=== PATIENT | female | born 1940 | race Caucasian/White ===

== ENCOUNTER → 2016-08-13 08:36 | Emergency (ER) | payer MEDICARE ==
[~2016-08-13 08:36] MED LIST: Aspirin Low Dose CHEW TAB* 81 MG PO ONE
[2016-08-13 09:22] LABS: Hematocrit 33 % (35-47); Hemoglobin 10.8 g/dl (12.0-16.0); Mean Corpuscular HGB Conc 33 g/dl (31-36); Mean Corpuscular Hemoglobin 29 pg (27-31); Mean Corpuscular Volume 88 fL (80-97); Mean Platelet Volume 7 um3 (7.4-10.4); Red Blood Count 3.74 10^6/ul (4.0-5.4); Red Cell Distribution Width 14 % (10.5-15)
[2016-08-13 09:46] LABS: Albumin 3.6 g/dL (3.2-5.2); BUN/Creatinine Ratio 30.4 (8-20); Calcium 8.7 mg/dL (8.6-10.3); EGFR Non-African American 70.8 (>60); Globulin 2.8 g/dL (2-4); Potassium 3.7 mmol/L (3.5-5.0); Total Bilirubin 0.4 mg/dL (0.2-1.0); Total Protein 6.4 g/dL (6.4-8.9)
[2016-08-13 09:49] LABS: Troponin I 0.02 ng/mL (<0.04)
--- NOTE | 2016-08-13 11:21 | RAD ---
INDICATION: Chest pain COMPARISON: Similar chest x-ray dated December 26, 2015 TECHNIQUE: Single AP portable view of the chest was obtained. FINDINGS: Image quality is compromised due to the relative inferiority of a portable chest x-ray. The heart and mediastinum exhibit normal size and contour. The lungs are grossly clear. There is no evidence of a large pleural effusion. Visualized bones are normal for the patient's age. IMPRESSION: No radiographic evidence for acute cardiopulmonary abnormality on this portable chest x-ray.
[2016-08-13 13:18] VITALS: BP 153/78
--- NOTE | 2016-08-14 17:27 | ED ---
Gaby Palafox Edward, scribed for Tulio Lanier MD on 08/13/16 at 0854 . HPI Chest Pain - HPI Summary HPI Summary: 76 y/o female presents to ED c/o CP on her left side. CP started while pt was sitting - characterized as a dull/aching pain, that lasted half an hour. Pain was not aggravated with movement or breathing. Alleviated by spontaneous resolution. No CP currently. Assoc sx: bad COBOS after the CP went away, but not present now. Denies N/V, diaphoresis, SOB, dizziness and fever. PMHx 2 LA in past 10 years, HTN. Takes Plavix and NTG. - History of Current Complaint Chief Complaint: EDChestPainROMI Time Seen by Provider: 08/13/16 08:48 Hx Obtained From: Patient Onset/Duration: Started Hours Ago Timing: Lasting Minutes - Lasted about half an hour Initial Severity: Moderate Current Severity: None Pain Intensity: 0 Chest Pain Location: Left Lateral Chest Pain Radiates: No Character: Dull/Aching Aggravating Factor(s): Nothing - Not aggravated by movement or breathing Alleviating Factor(s): Spontaneous Resolution Associated Signs and Symptoms: Positive: Chest Pain - dull/aching, Headaches - Started after CP went away. Not present currenlty. Negative: Dizziness, Shortness of Breath, Fever, Diaphoresis, Nausea - Risk Factors AMI/ACS Risk Factors: Myocardial Infarction - 2 in past 10 years, Hypertension, Smoking - Quit smoking at 75 y/o - Additional Pertinent History Primary Care Physician: ROSEMARY - Allergy/Home Medications Allergies/Adverse Reactions: Allergies Allergy/AdvReac Type Severity Reaction Status Date / Time LOYD Inhibitors Allergy Coughing Verified 08/13/16 08:40 [facility] Allergy Rash Verified 08/13/16 08:40 PMH/Surg Hx/FS Hx/Imm Hx Previously Healthy: No Endocrine/Hematology History: Reports: Hx Diabetes Denies: Hx Bone Marrow Disease, Hx Sickle Cell Disease, Hx Anemia Cardiovascular History: Reports: Hx Angina, Hx Coronary Artery Disease, Hx Hypercholesterolemia, Hx Hypertension, Hx Myocardial Infarction - 2 in 10 years , Other Cardiovascular Problems/Disorders - IDDM Denies: Hx Congestive Heart Failure, Hx Valvular Heart Disease Respiratory History: Denies: Hx Asthma, Hx Chronic Obstructive Pulmonary Disease (COPD) GI History: Reports: Hx Gall Bladder Disease - removed, Hx Gastroesophageal Reflux Disease Denies: Hx Ulcer History: Denies: Hx Renal Disease Musculoskeletal History: Reports: Hx Arthritis - knees, hands, Hx Osteoporosis Sensory History: Reports: Hx Contacts or Glasses Denies: Hx Hearing Aid Opthamlomology History: Reports: Hx Contacts or Glasses Neurological History: Reports: Hx Headaches, Hx Migraine - Cancer History Hx Chemotherapy: No - Surgical History Surgery Procedure, Year, and Place: left knee total replacement 2012 [facility],. cholecystectomy 5-6 years ago in [facility] [place]. 2014 - left ankle orif. HEART CATH WITH 2 STENTS Hx Anesthesia Reactions: No Infectious Disease History: No Infectious Disease History: Denies: Traveled Outside the [place] in Last 30 Days - Family History Known Family History: Positive: Cardiac Disease - CAD (both parents) - Social History Occupation: Retired Lives: Alone Alcohol Use: None Substance Use Type: Reports: None Hx Tobacco Use: Yes Smoking Status (MU): Former Smoker Type: Cigarettes Have You Smoked in the Last Year: No Review of Systems Constitutional: Negative Negative: Fever, Skin Diaphoresis Eyes: Negative ENT: Negative Positive: Chest Pain - dull/aching. Not present now Respiratory: Negative Negative: Shortness Of Breath Gastrointestinal: Negative Negative: Vomiting, Nausea Genitourinary: Negative Musculoskeletal: Negative Skin: Negative Neurological: Other - Negative dizziness Positive: Headache - Resolved Psychological: Normal All Other Systems Reviewed And Are Negative: Yes Physical Exam - Summary Physical Exam Summary: VITAL SIGNS:~Reviewed. GENERAL:~ Patient is a well-developed and nourished female who is lying comfortable in the stretcher.~ Patient is not in any acute respiratory distress. HEAD AND FACE:~No signs of trauma.~ No ecchymosis, hematomas or skull depressions. No sinus tenderness. EYES:~PERRLA, EOMI x 2, No injected conjunctiva, no nystagmus. EARS:~Hearing grossly intact. Ear canals and tympanic membranes are within normal limits. MOUTH:~Oropharynx within normal limits. NECK:~Supple, trachea is midline, no adenopathy, no JVD, no carotid bruit, no c- spine tenderness, neck with full ROM. CHEST:~Symmetric, no tenderness at palpation LUNGS:~Clear to auscultation bilaterally. No wheezing or crackles. CVS:~Regular rate and rhythm, S1 and S2 present, no murmurs or gallops appreciated. ABDOMEN:~Soft, non-tender. No signs of distention. No rebound no guarding, and no masses palpated. Bowel sounds are normal. EXTREMITIES:~FROM in all major joints, no edema, no cyanosis or clubbing. NEURO:~Alert and oriented x 3. No acute neurological deficits. Speech is normal and follows commands. SKIN:~Dry and warm ~ Triage Information Reviewed: Yes Vital Signs On Initial Exam: Initial Vitals Temp Pulse Resp BP Pulse Ox 98 F 69 16 132/70 97 08/13/16 08:43 08/13/16 08:43 08/13/16 08:43 08/13/16 08:43 08/13/16 08:43 Vital Signs Reviewed: Yes - Corn Coma Scale Coma Scale Total: 15 Diagnostics - Vital Signs Vital Signs Temp Pulse Resp BP Pulse Ox 08/13/16 08:43 98 F 69 16 132/70 97 - Laboratory Lab Results: Lab Results 08/13/16 08/13/16 08/13/16 Range/Units 09:05 09:05 09:05 WBC 6.0 (3.5-10.8) 10^3/ul RBC 3.74 L (4.0-5.4) 10^6/ul Hgb 10.8 L (12.0-16.0) g/dl Hct 33 L (35-47) % MCV 88 (80-97) fL MCH 29 (27-31) pg MCHC 33 (31-36) g/dl RDW 14 (10.5-15) % Plt Count 240 (150-450) 10^3/ul MPV 7 L (7.4-10.4) um3 Neut % (Auto) 65.6 (38-83) % Lymph % (Auto) 19.9 L (25-47) % [place] % (Auto) 8.7 (1-9) % Eos % (Auto) 4.4 (0-6) % Baso % (Auto) 1.4 (0-2) % Absolute Neuts (auto) 3.9 (1.5-7.7) 10^3/ul Absolute Lymphs (auto) 1.2 (1.0-4.8) 10^3/ul Absolute Monos (auto) 0.5 (0-0.8) 10^3/ul Absolute Eos (auto) 0.3 (0-0.6) 10^3/ul Absolute Basos (auto) 0.1 (0-0.2) 10^3/ul Absolute Nucleated RBC 0 10^3/ul Nucleated RBC % 0.1 Sodium 137 (133-145) mmol/L Potassium 3.7 (3.5-5.0) mmol/L Chloride 105 (101-111) mmol/L Carbon Dioxide 27 (22-32) mmol/L Anion Gap 5 (2-11) mmol/L BUN 24 (6-24) mg/dL Creatinine 0.79 (0.51-0.95) mg/dL Est GFR ( Amer) 91.0 (>60) Est GFR (Non-Af Amer) 70.8 (>60) BUN/Creatinine Ratio 30.4 H (8-20) Glucose 136 H (70-100) mg/dL Lactic Acid 1.4 (0.5-2.0) mmol/L Calcium 8.7 (8.6-10.3) mg/dL Total Bilirubin 0.40 (0.2-1.0) mg/dL AST 22 (13-39) U/L ALT 23 (7-52) U/L Alkaline Phosphatase 101 (34-104) U/L Total Creatine Kinase 36 (10-223) U/L CK-MB (CK-2) 1.1 (0.6-6.3) ng/mL Troponin I 0.02 (<0.04) ng/mL B-Natriuretic Peptide ( - 100) pg/mL Total Protein 6.4 (6.4-8.9) g/dL Albumin 3.6 (3.2-5.2) g/dL Globulin 2.8 (2-4) g/dL Albumin/Globulin Ratio 1.3 (1-3) 08/13/16 08/13/16 Range/Units 09:05 11:35 WBC (3.5-10.8) 10^3/ul RBC (4.0-5.4) 10^6/ul Hgb (12.0-16.0) g/dl Hct (35-47) % MCV (80-97) fL MCH (27-31) pg MCHC (31-36) g/dl RDW (10.5-15) % Plt Count (150-450) 10^3/ul MPV (7.4-10.4) um3 Neut % (Auto) (38-83) % Lymph % (Auto) (25-47) % [place] % (Auto) (1-9) % Eos % (Auto) (0-6) % Baso % (Auto) (0-2) % Absolute Neuts (auto) (1.5-7.7) 10^3/ul Absolute Lymphs (auto) (1.0-4.8) 10^3/ul Absolute Monos (auto) (0-0.8) 10^3/ul Absolute Eos (auto) (0-0.6) 10^3/ul Absolute Basos (auto) (0-0.2) 10^3/ul Absolute Nucleated RBC 10^3/ul Nucleated RBC % Sodium (133-145) mmol/L Potassium (3.5-5.0) mmol/L Chloride (101-111) mmol/L Carbon Dioxide (22-32) mmol/L Anion Gap (2-11) mmol/L BUN (6-24) mg/dL Creatinine (0.51-0.95) mg/dL Est GFR ( Amer) (>60) Est GFR (Non-Af Amer) (>60) BUN/Creatinine Ratio (8-20) Glucose (70-100) mg/dL Lactic Acid (0.5-2.0) mmol/L Calcium (8.6-10.3) mg/dL Total Bilirubin (0.2-1.0) mg/dL AST (13-39) U/L ALT (7-52) U/L Alkaline Phosphatase (34-104) U/L Total Creatine Kinase (10-223) U/L CK-MB (CK-2) (0.6-6.3) ng/mL Troponin I 0.02 (<0.04) ng/mL B-Natriuretic Peptide 73 ( - 100) pg/mL Total Protein (6.4-8.9) g/dL Albumin (3.2-5.2) g/dL Globulin (2-4) g/dL Albumin/Globulin Ratio (1-3) Result Diagrams: 08/13/16 09:05 08/13/16 09:05 Lab Statement: Any lab studies that have been ordered have been reviewed, and results considered in the medical decision making process. - Radiology CHEST XRAY Xray Interpretation: No Acute Changes - No radiographic evidence for acute cardiopulmonary abnormality on this portable chest x-ray. Radiology Interpretation Completed By: Radiologist - EKG 1 EKG Interpretation: 08:51 - Sinus rhythm @ [address] elevations Chest Pain Course/Dx - Course Assessment/Plan: 76 y/o female presents to ED c/o CP on her left side. CP started while pt was sitting - characterized as a dull/aching pain, that lasted half an hour. Pain was not aggravated with movement or breathing. Alleviated by spontaneous resolution. No CP currently. Assoc sx: bad COBOS after the CP went away , but not present now. Denies N/V, diaphoresis, SOB, dizziness and fever. PMHx 2 LA in past 10 years, HTN. Takes Plavix and NTG. In the ED course, we acquired IV access and the patient was placed on a monitor. The patient experienced no CP at this point and no symptoms. Patients CP lasted half an hour. She has NTG but didnt take her medications. Tests are WNL except glucose 136, Trop 1 negative and Trop 2 0.02. EKG showed no ST elevation. Patients CXR was negative for acute pathology. I discussed with the patient who was instructed to F/U with her PCP, and instructed to return if she experiences CP, SOB, Palpitations, N/V, and diaphoresis. The Patient understands and agrees. - Chest Pain Differential Diagnosis/HQI/PQRI: ACS, Angina, CHF, Chest Wall, GI Disease, Lower Respiratory Infection - Diagnoses Provider Diagnoses: Chest pain Discharge - Discharge Plan Condition: Stable Disposition: HOME Patient Education Materials: Chest Pain (ED) Referrals: Camila Dean MD [Primary Care Provider] - The documentation as recorded by the Gaby diaz Edward accurately reflects the service I personally performed and the decisions made by me, Tulio Lanier MD.
== END | disposition home or self-care (01) ==
LOC: ED 08:36
DX: R07.9 Chest pain, unspecified (principal); R51 Headache; Z87.891 Personal history of nicotine dependence
CPT/HCPCS: 36415; 71010; 80053; 82550; 82553; 83605; 83880; 84484; 85025; 93005; 99283; A9270-GY

== ENCOUNTER 2016-09-22 20:27 | Inpatient (IN) | payer MEDICARE, BC ==
[2016-09-22] MEDS ORDERED: Aspirin Low Dose CHEW TAB* 81 MG PO ONE (21:16)
[2016-09-22 21:26] LABS: Hematocrit 33 % (35-47); Hemoglobin 10.8 g/dl (12.0-16.0); Mean Corpuscular HGB Conc 33 g/dl (31-36); Mean Corpuscular Hemoglobin 30 pg (27-31); Mean Corpuscular Volume 92 fL (80-97); Mean Platelet Volume 7 um3 (7.4-10.4); Red Blood Count 3.61 10^6/ul (4.0-5.4); Red Cell Distribution Width 14 % (10.5-15); White Blood Count 8.2 10^3/ul (3.5-10.8)
[2016-09-22 21:43] LABS: Albumin 3.7 g/dL (3.2-5.2); BUN/Creatinine Ratio 32.9 (8-20); Calcium 8.9 mg/dL (8.6-10.3); EGFR African American 87.2 (>60); EGFR Non-African American 67.8 (>60); Globulin 3.1 g/dL (2-4); Total Bilirubin 0.6 mg/dL (0.2-1.0); Total Protein 6.8 g/dL (6.4-8.9)
[2016-09-22 21:48] LABS: Troponin I 0.06 ng/mL (<0.04)
--- NOTE | 2016-09-22 22:02 | RAD ---
Indication: Chest pain, shortness of breath. CHF. Coronary artery disease. Diabetes. History of tobacco use. Comparison: August 13, 2016 chest radiograph. Technique: Upright AP 2120 hours Report: Elevated lung volumes and both diffuse mild prominence of the interstitial markings and patchy rarefaction of the mid to upper lung zone interstitial markings. No focal pulmonary lesion, compelling alveolar consolidation, pleural effusion, pneumothorax. The heart, pulmonary vasculature, and mediastinal contours are unremarkable. IMPRESSION: Stigmata of obstructive lung disease. No acute pulmonary or cardiac process evident.
[2016-09-22] MEDS ORDERED: Ondansetron ODT TAB* 4 MG SL PRN (23:22)
[2016-09-22] MEDS ORDERED: Olopatadine 0.1% OPHTH (NF) 1 DROP BTL BOTH EYES PRN (23:22)
[2016-09-22] MEDS ORDERED: Acetaminophen TAB* 325 MG PO PRN (23:22)
[2016-09-22] MEDS ORDERED: Cetirizine* 10 MG TAB PO PRN (23:22)
[2016-09-22] MEDS ORDERED: Dextrose 50% Syringe 50 ML* 25 GM/50 ML SYRINGE IV PUSH PRN (23:25)
[2016-09-23] MEDS: Insulin LISPRO* 1 UNITS UNIT SUBCUT SCH ×5 (01:14→23:52)
--- NOTE | 2016-09-23 01:35 | HP ---
CC: Dr. Dean* HISTORY AND PHYSICAL: DATE OF ADMISSION: 09/22/16 CHIEF COMPLAINT: Chest pressure. HISTORY OF PRESENT ILLNESS: The patient is a 76-year-old who is an unusually poor historian who presents to the [facility] with the chief complaint of chest pressure that apparently started this morning. Initially, when I walked into the room, the patient could not remember why she was here, but with some prodding by the nurse and the ER doctor, she did recall some things. She stated it started 9 am. She had no associated shortness of breath , nausea, vomiting, palpations or sweating. She did recall, however, it is different from her previous MIs, but cannot recall the character of her pain. PAST MEDICAL HISTORY: Significant for coronary artery disease with LA and stents placed, most recently 2 stents placed by Interventional Cardiology at [facility]. One with a stent in the obtuse marginal branch and another in the circumflex artery and the other in proximal lesion of the circumflex artery with another drug eluting stent. Also, she has hypertension, hyperlipidemia, non- insulin dependent diabetes, GERD, migraines, history of left foot drop. PAST SURGICAL HISTORY: Significant for ORIF of the left ankle complicated by infection and hardware removal, cholecystectomy and left total knee replacement. CURRENT MEDICATIONS: 1. Metformin 500 mg twice daily. 2. Zofran 4 mg sublingual q.4 hours as needed. 3. Omeprazole 20 mg daily. 4. Patanol one drop to both eyes twice a day as needed. 5. Benicar 40 mg daily. 6. Multivitamin 1 tablet daily. 7. Metoprolol succinate 100 mg twice daily. 8. Hydrochlorothiazide 25 mg daily. 9. Diltiazem CD 120 mg daily. 10. Zyrtec 10 mg daily as needed. 11. Calcium 1000 mg daily. 12. Lipitor 80 mg in the evening. 13. Aspirin 81 mg daily. 14. Tylenol 650 mg every 6 hours as needed. ALLERGIES: She has allergy/adverse reactions to LOYD INHIBITORS, which is coughing and AMLODIPINE, which is a rash. FAMILY HISTORY: Two parents with coronary artery disease as well as 3 siblings. SOCIAL HISTORY: No tobacco, quit, has a [id number] history, no alcohol, no recreational drug use. She lives alone. She cannot give me the name of surrogate decision maker. REVIEW OF SYSTEMS: Unable to obtain from the patient due to her being a poor historian. PHYSICAL EXAMINATION GENERAL: Obese woman, lying in bed, in no acute distress. VITAL SIGNS: Blood pressure is 104/47, pulse ox 95%, respiratory rate 14 breaths per minute, heart rate 75 beats per minute, temperature 97.8 degrees. HEENT: Normocephalic, atraumatic. Pupils equal, round, and reactive to light. Moist mucous membranes. NECK: Supple. No JVD, bruits, palpable thyroid or lymphadenopathy. CHEST: Clear to auscultation and percussion bilaterally. CARDIOVASCULAR: S1 and S2 appreciated. ABDOMEN: Positive bowel sounds in all 4 quadrants. Soft, nontender, nondistended. EXTREMITIES: No cyanosis or clubbing, bilateral edema. +2 peripheral pulses bilaterally. NEUROLOGIC: Alert and oriented x2. Moves all extremities. SKIN: No distinct rashes or abnormalities. LAB DATA: White count of 8.2, hemoglobin 10.8, hematocrit 33, platelets are 277. Sodium was 137, potassium 4.0, chloride 103, CO2 29, BUN 27, creatinine 0.82, glucose 104, troponin 0.06. EKG not available for review at this time. ASSESSMENT AND PLAN: 1. Chest pain, I doubt it is cardiac only because it is so different from prior events and she cannot give me much of a history about it. I am awaiting the EKG. If the troponin does bump, however, I will not hesitate to put her on heparin and make Cardiology aware. We will check hemoglobin A1c and lipid profile. If her troponin stays in the same stage, I will get a nuclear cardiac stress test in the morning. The patient is obviously being admitted to telemetry. 2. Diabetes mellitus, hold oral hypoglycemics, placed on fingerstick with sliding scale insulin. As noted earlier, hemoglobin A1c. 3. Hypertension, continue current regimen, blood pressure borderline control. 4. Gastroesophageal reflux disease, stable, continue PPI. 5. DVT prophylaxis, heparin subcu. 6. FEN. NPO awaiting either stress test or other intervention if necessary. 7. The patient is a full code. TIME SPENT: Over 80 minutes were spent on this H and P, more than 40 minutes of which was spent in direct [id number] contact with the patient in evaluation , physical exam, and counseling and coordination of care. [id number]/[facility] #: [id number] DEWEY
--- NOTE | 2016-09-23 03:35 | ED ---
Chepe Palafox Rebecca, scribed for Taye Villagomez MD on 09/22/16 at 2103 . HPI Chest Pain - HPI Summary HPI Summary: Pt is a 76 y/o F who presents to ED c/o CP. Pain began at 0900 and has been constant since onset. Sx characterized as pressure and located in the left anterior region with possible radiation to the LLE. Pain is currently resolved, ranked 0/10. Sx aggravated by nothing, alleviated by NTG, unchanged by waking and exertion. Denies SOB, diaphoresis, edema and pain in the calves. Denies N/V/ D, melena, blood in stool, difficulty urinating, cough and rhionrrhea. No recent travel or surgeries. FHx CAD (father). PMHx CAD and NH - current sx are different from previous MIs but she is unsure how it differs. This episode is the first of CP in awhile. Has an appt with her search engine marketing strategist tomorrow through [employer]. - History of Current Complaint Chief Complaint: EDChestPainROMI Time Seen by Provider: 09/22/16 20:49 Hx Obtained From: Patient Onset/Duration: Started Hours Ago, Resolved Time of Onset: 09:00 Timing: Constant Current Severity: None Pain Intensity: 0 Pain Scale Used: 0-10 Numeric Chest Pain Location: Left Anterior Chest Pain Radiates: Yes Chest Pain Radiates To:: Arm - LUE Character: Pressure/Squeezing Aggravating Factor(s): Nothing Alleviating Factor(s): NTG 123 Associated Signs and Symptoms: Positive: Negative. Negative: Shortness of Breath, Diaphoresis, Nausea, Vomiting, Edema - Additional Pertinent History Primary Care Physician: ROSEMARY - Allergy/Home Medications Allergies/Adverse Reactions: Allergies Allergy/AdvReac Type Severity Reaction Status Date / Time LOYD Inhibitors Allergy Coughing Verified 09/22/16 21:52 [facility]ine [From [facility]] Allergy Rash Verified 09/22/16 21:52 PMH/Surg Hx/FS Hx/Imm Hx Endocrine/Hematology History: Reports: Hx Diabetes Denies: Hx Bone Marrow Disease, Hx Sickle Cell Disease, Hx Anemia Cardiovascular History: Reports: Hx Angina, Hx Coronary Artery Disease, Hx Hypercholesterolemia, Hx Hypertension, Hx Myocardial Infarction - 2 in 10 years , Other Cardiovascular Problems/Disorders - IDDM Denies: Hx Congestive Heart Failure, Hx Valvular Heart Disease Respiratory History: Denies: Hx Asthma, Hx Chronic Obstructive Pulmonary Disease (COPD) GI History: Reports: Hx Gall Bladder Disease - removed, Hx Gastroesophageal Reflux Disease Denies: Hx Ulcer History: Denies: Hx Renal Disease Musculoskeletal History: Reports: Hx Arthritis - knees, hands, Hx Osteoporosis Sensory History: Reports: Hx Contacts or Glasses Denies: Hx Hearing Aid Opthamlomology History: Reports: Hx Contacts or Glasses Neurological History: Reports: Hx Headaches, Hx Migraine - Cancer History Hx Chemotherapy: No - Surgical History Surgery Procedure, Year, and Place: left knee total replacement 2012 [facility],. cholecystectomy 5-6 years ago in [facility] [place]. 2014 - left ankle orif. HEART CATH WITH 2 STENTS Hx Anesthesia Reactions: No Infectious Disease History: No Infectious Disease History: Denies: Traveled Outside the [place] in Last 30 Days - Family History Known Family History: Positive: Cardiac Disease - CAD (both parents) - Social History Alcohol Use: None Substance Use Type: Reports: None Hx Tobacco Use: Yes Smoking Status (MU): Former Smoker Type: Cigarettes Have You Smoked in the Last Year: No Review of Systems Negative: Skin Diaphoresis Negative: Nasal Discharge Positive: Chest Pain - Pressure - resolved Negative: Shortness Of Breath, Cough Negative: Vomiting, Diarrhea, Nausea Positive: other - Denies melena, blood in stool, difficulty urinating Positive: Other - Denies calf tenderness. Negative: Edema All Other Systems Reviewed And Are Negative: Yes Physical Exam - Summary Physical Exam Summary: The patient is well-nourished in no acute distress and in no acute pain. The skin is warm and dry and pale. Decreased skin turgor. HEENT: The pupils are equal and reactive. The nares are patent and without drainage. Mouth reveals dry mucous membranes and the throat is without erythema and exudate. The external ears are intact. The ear canals are patent and without drainage. The tympanic membranes are intact. Neck is supple with full range of motion and non-tender. There are no carotid bruits. Respiratory: Chest is non-tender. Lungs are clear to auscultation and breath sounds are symmetrical and equal. Cardiovascular: Heart is regular rate and rhythm. There is no murmur or rub auscultated. No reproducible anterior chest wall pain. Pulses are symmetrical and equal. Abdomen: The abdomen is obese, soft and non-tender. There are normal bowel sounds heard in all four quadrants and there is no organomegaly palpated. Musculoskeletal: There is no back pain noted. Extremities are non-tender with full range of motion. There is good capillary refill of 2 seconds. There is no calf tenderness elicited. Some bilateral edema of the lower extremities. Neurological: Patient is slightly confused to events. The patient has symmetrical motor strength in all four extremities. She is not a great historian. Psychiatric: The patient has an appropriate affect and does not exhibit any anxiety or depression. Triage Information Reviewed: Yes Vital Signs On Initial Exam: Initial Vitals Temp Pulse Resp BP Pulse Ox 97.6 F 88 20 131/70 97 09/22/16 20:31 09/22/16 20:31 09/22/16 20:31 09/22/16 20:31 09/22/16 20:31 Vital Signs Reviewed: Yes Diagnostics - Vital Signs Vital Signs Temp Pulse Resp BP Pulse Ox 09/22/16 20:31 97.6 F 88 20 131/70 97 - Laboratory Lab Results: Lab Results 09/22/16 09/22/16 09/22/16 Range/Units 21:05 21:05 21:05 WBC 8.2 (3.5-10.8) 10^3/ul RBC 3.61 L (4.0-5.4) 10^6/ul Hgb 10.8 L (12.0-16.0) g/dl Hct 33 L (35-47) % MCV 92 (80-97) fL MCH 30 (27-31) pg MCHC 33 (31-36) g/dl RDW 14 (10.5-15) % Plt Count 277 (150-450) 10^3/ul MPV 7 L (7.4-10.4) um3 Neut % (Auto) 64.5 (38-83) % Lymph % (Auto) 22.7 L (25-47) % [place] % (Auto) 8.2 (1-9) % Eos % (Auto) 3.6 (0-6) % Baso % (Auto) 1.0 (0-2) % Absolute Neuts (auto) 5.3 (1.5-7.7) 10^3/ul Absolute Lymphs (auto) 1.8 (1.0-4.8) 10^3/ul Absolute Monos (auto) 0.7 (0-0.8) 10^3/ul Absolute Eos (auto) 0.3 (0-0.6) 10^3/ul Absolute Basos (auto) 0.1 (0-0.2) 10^3/ul Absolute Nucleated RBC 0 10^3/ul Nucleated RBC % 0 Sodium 137 (133-145) mmol/L Potassium 4.0 (3.5-5.0) mmol/L Chloride 103 (101-111) mmol/L Carbon Dioxide 29 (22-32) mmol/L Anion Gap 5 (2-11) mmol/L BUN 27 H (6-24) mg/dL Creatinine 0.82 (0.51-0.95) mg/dL Est GFR ( Amer) 87.2 (>60) Est GFR (Non-Af Amer) 67.8 (>60) BUN/Creatinine Ratio 32.9 H (8-20) Glucose 104 H (70-100) mg/dL Lactic Acid 1.3 (0.5-2.0) mmol/L Calcium 8.9 (8.6-10.3) mg/dL Total Bilirubin 0.60 (0.2-1.0) mg/dL AST 30 (13-39) U/L ALT 39 (7-52) U/L Alkaline Phosphatase 91 (34-104) U/L Troponin I 0.06 H* (<0.04) ng/mL B-Natriuretic Peptide ( - 100) pg/mL Total Protein 6.8 (6.4-8.9) g/dL Albumin 3.7 (3.2-5.2) g/dL Globulin 3.1 (2-4) g/dL Albumin/Globulin Ratio 1.2 (1-3) // Range/Units 21:05 WBC (3.5-10.8) 10^3/ul RBC (4.0-5.4) 10^6/ul Hgb (12.0-16.0) g/dl Hct (35-47) % MCV (80-97) fL MCH (27-31) pg MCHC (31-36) g/dl RDW (10.5-15) % Plt Count (150-450) 10^3/ul MPV (7.4-10.4) um3 Neut % (Auto) (38-83) % Lymph % (Auto) (25-47) % [place] % (Auto) (1-9) % Eos % (Auto) (0-6) % Baso % (Auto) (0-2) % Absolute Neuts (auto) (1.5-7.7) 10^3/ul Absolute Lymphs (auto) (1.0-4.8) 10^3/ul Absolute Monos (auto) (0-0.8) 10^3/ul Absolute Eos (auto) (0-0.6) 10^3/ul Absolute Basos (auto) (0-0.2) 10^3/ul Absolute Nucleated RBC 10^3/ul Nucleated RBC % Sodium (133-145) mmol/L Potassium (3.5-5.0) mmol/L Chloride (101-111) mmol/L Carbon Dioxide (22-32) mmol/L Anion Gap (2-11) mmol/L BUN (6-24) mg/dL Creatinine (0.51-0.95) mg/dL Est GFR ( Amer) (>60) Est GFR (Non-Af Amer) (>60) BUN/Creatinine Ratio (8-20) Glucose (70-100) mg/dL Lactic Acid (0.5-2.0) mmol/L Calcium (8.6-10.3) mg/dL Total Bilirubin (0.2-1.0) mg/dL AST (13-39) U/L ALT (7-52) U/L Alkaline Phosphatase (34-104) U/L Troponin I (<0.04) ng/mL B-Natriuretic Peptide 32 ( - 100) pg/mL Total Protein (6.4-8.9) g/dL Albumin (3.2-5.2) g/dL Globulin (2-4) g/dL Albumin/Globulin Ratio (1-3) Result Diagrams: 09/22/16 21:05 09/22/16 21:05 Lab Statement: Any lab studies that have been ordered have been reviewed, and results considered in the medical decision making process. - Radiology CXR Xray Interpretation: Positive (See Comments) - Stigmata of obstructive lung disease. No acute pulmonary or cardiac process evident. Radiology Interpretation Completed By: Radiologist - EKG 2041 Cardiac Rate: NL - 65 bpm EKG Rhythm: Sinus Rhythm EKG Interpretation: Q waves in 3 and aVF, no STEMI Re-Evaluation - Re-Evaluation First Eval Re-Evaluation Time: 22:16 Comment: Discussed CXR and EKG results and plan to admit the pt. Chest Pain Course/Dx - Course Assessment/Plan: Pt is a 76 y/o F who presents to ED c/o constant CP characterized as pressure in the left anterior region with possible radiation to the LLE since 0900. Pain is currently resolved. Sx alleviated by NTG, unchanged by waking and exertion. Denies SOB, diaphoresis, edema and pain in the calves. Denies N/V/D, melena, blood in stool, difficulty urinating, cough and rhionrrhea. No recent travel or surgeries. FHx CAD (father). PMHx CAD and NH - current sx are different from previous MIs but she is unsure how it differs. Has an appt with her search engine marketing strategist tomorrow through [employer]. Troponin of 0.06. EKG reveals Q waves with no STEMI. CXR reveals "Stigmata of obstructive lung disease. No acute pulmonary or cardiac process evident. " In the ED course, the pt received ASA. Discussed with Dr. Ibanez who accepts pt for admission. Patient will be admitted with Dx of chest pain. She understands and agrees. - Chest Pain Differential Diagnosis/HQI/PQRI: Acute NH, ACS, CHF - Diagnoses Provider Diagnoses: Chest pain, ACS (acute coronary syndrome) - Provider Notifications Discussed Care Of Patient With: Manoj Ibanez Time Discussed With Above Provider: 20:05 Instructed by Provider To: Other - Accepts pt for admisison Discharge - Discharge Plan Condition: Good Disposition: ADMITTED TO [facility] documentation as recorded by the Chepe diaz Rebecca accurately reflects the service I personally performed and the decisions made by me, Taye Villagomez MD.
[2016-09-23] MEDS ORDERED: Heparin VIAL(*) 5000 UNITS/ML VIAL (FIVE THOUSAND) IV SCH (05:00)
[2016-09-23] MEDS: Heparin DRIP 25,000 UNITS(*) 25,000 UNITS/500 ML BAG IV SCH ×2 (05:03→23:33)
[2016-09-23 05:32] LABS: HDL Cholesterol 33.2 mg/dL
[2016-09-23 05:37] LABS: Hematocrit 33 % (35-47); Hemoglobin 10.9 g/dl (12.0-16.0); Mean Corpuscular HGB Conc 33 g/dl (31-36); Mean Corpuscular Hemoglobin 30 pg (27-31); Mean Corpuscular Volume 92 fL (80-97); Mean Platelet Volume 7 um3 (7.4-10.4); Red Blood Count 3.63 10^6/ul (4.0-5.4); Red Cell Distribution Width 14 % (10.5-15); White Blood Count 6.7 10^3/ul (3.5-10.8)
[2016-09-23] MEDS ORDERED: Heparin VIAL(*) 5000 UNITS/ML VIAL (FIVE THOUSAND) SUBCUT SCH (06:00)
--- NOTE | 2016-09-23 08:55 | PN ---
Subjective Date of Service: 09/23/16 Interval History: No more chest pressure. She stataes she took 2 NTG at home at they helped. She states this was thie first time she took NTG. No SOB, no new c/o. Slept well. Hungry. Objective Active Medications: Acetaminophen (Tylenol Tab*) 650 mg PO Q6H PRN PRN Reason: PAIN Aspirin (Aspirin Low Dose Tab*) 81 mg PO DAILY MARY Atorvastatin Calcium (Lipitor*) 80 mg PO QPM MARY Calcium Carbonate (Calcium Carbonate Tab*) 1,250 mg PO DAILY MARY Cetirizine HCl (Zyrtec*) 10 mg PO DAILY PRN; Protocol PRN Reason: ALLERGIES Dextrose (D50w Syringe 50 Ml*) 12.5 gm IV PUSH .FOR FS < 60 - SS PRN PRN Reason: FS < 60 Diltiazem HCl (Cardizem Cd Cap*) 120 mg PO DAILY [facility] Heparin Sodium (Porcine) (Heparin Vial(*)) 0 units IV .PER PROTOCOL MARY PRN Reason: Protocol Hydrochlorothiazide (Hydrodiuril Tab*) 25 mg PO DAILY [facility] Heparin Sodium/Dextrose (Heparin Drip 25,000 Units(*)) 25,000 units in 500 mls @ 0 mls/hr IV .NO INITIAL BOLUS MARY; As Directed PRN Reason: Protocol Last Admin: 09/23/16 05:03 Dose: 26 mls/hr Insulin Human Lispro (Humalog*) 0 units SUBCUT Q6HR MARY PRN Reason: Protocol Last Admin: 09/23/16 05:52 Dose: Not Given Metoprolol Succinate (Toprol Xl Tab*) 100 mg PO BID [facility] Multivitamins (Theragran Tab*) 1 tab PO DAILY [facility] Olopatadine HCl (Patanol 0.1% Ophth (Nf)) 1 drop BOTH EYES BID PRN; Protocol PRN Reason: IRRITATTION Omeprazole (Prilosec Cap*) 20 mg PO DAILY MARY Ondansetron HCl (Zofran Odt Tab*) 4 mg SL Q4H PRN PRN Reason: NAUSEA Last Admin: 09/23/16 01:17 Dose: 4 mg Valsartan (Diovan Tab*) 320 mg PO DAILY [facility] Vital Signs 09/22/16 09/22/16 09/23/16 23:30 23:56 00:28 Temperature 97.4 F 97.4 F Pulse Rate 75 72 72 Respiratory 14 16 16 Rate Blood Pressure 99/48 136/77 136/77 (mmHg) O2 Sat by Pulse 95 100 100 Oximetry 09/23/16 09/23/16 09/23/16 00:38 00:40 00:50 Temperature Pulse Rate Respiratory 13 16 9 Rate Blood Pressure (mmHg) O2 Sat by Pulse Oximetry 09/23/16 09/23/16 09/23/16 01:00 01:10 01:20 Temperature Pulse Rate Respiratory 38 5 6 Rate Blood Pressure (mmHg) O2 Sat by Pulse Oximetry 09/23/16 09/23/16 09/23/16 01:30 01:40 01:50 Temperature Pulse Rate Respiratory 9 27 15 Rate Blood Pressure (mmHg) O2 Sat by Pulse Oximetry 09/23/16 09/23/16 09/23/16 02:00 02:10 02:20 Temperature Pulse Rate Respiratory 19 17 13 Rate Blood Pressure (mmHg) O2 Sat by Pulse Oximetry 09/23/16 09/23/16 09/23/16 02:30 02:40 02:50 Temperature Pulse Rate Respiratory 15 15 17 Rate Blood Pressure (mmHg) O2 Sat by Pulse Oximetry 09/23/16 09/23/16 09/23/16 03:00 03:10 03:20 Temperature Pulse Rate Respiratory 15 16 15 Rate Blood Pressure (mmHg) O2 Sat by Pulse Oximetry 09/23/16 09/23/16 09/23/16 03:30 03:40 07:32 Temperature 97.8 F 97.5 F Pulse Rate 73 69 Respiratory 14 18 18 Rate Blood Pressure 112/42 114/50 (mmHg) O2 Sat by Pulse 97 98 Oximetry Oxygen Devices in Use Now: Nasal Cannula Appearance: Alert, partly up in bed. Neutral affect. Looks comfortable. Eyes: No Scleral Icterus Ears/Nose/Mouth/Throat: Clear Oropharnyx, Mucous Membranes Moist Neck: NL Appearance and Movements; NL JVP, No Thyroid Enlargement, Masses Respiratory: Symmetrical Chest Expansion and Respiratory Effort, Clear to Auscultation, Clear to Percussion Cardiovascular: NL Sounds; No Murmurs; No JVD, RRR, No Edema, - Extremities: No Edema, No Clubbing, Cyanosis, - Skin: No Rash or Ulcers, No Nodules or Sclerosis, - Neurological: NL Sensation, - - Diminished memory. Result Diagrams: 09/23/16 05:15 09/23/16 05:15 Additional Lab and Data: Lab Results 09/22/16 09/22/16 09/22/16 Range/Units 21:05 21:05 21:05 WBC 8.2 (3.5-10.8) 10^3/ul RBC 3.61 L (4.0-5.4) 10^6/ul Hgb 10.8 L (12.0-16.0) g/dl Hct 33 L (35-47) % MCV 92 (80-97) fL MCH 30 (27-31) pg MCHC 33 (31-36) g/dl RDW 14 (10.5-15) % Plt Count 277 (150-450) 10^3/ul MPV 7 L (7.4-10.4) um3 Neut % (Auto) 64.5 (38-83) % Lymph % (Auto) 22.7 L (25-47) % [place] % (Auto) 8.2 (1-9) % Eos % (Auto) 3.6 (0-6) % Baso % (Auto) 1.0 (0-2) % Absolute Neuts (auto) 5.3 (1.5-7.7) 10^3/ul Absolute Lymphs (auto) 1.8 (1.0-4.8) 10^3/ul Absolute Monos (auto) 0.7 (0-0.8) 10^3/ul Absolute Eos (auto) 0.3 (0-0.6) 10^3/ul Absolute Basos (auto) 0.1 (0-0.2) 10^3/ul Absolute Nucleated RBC 0 10^3/ul Nucleated RBC % 0 Sodium 137 (133-145) mmol/L Potassium 4.0 (3.5-5.0) mmol/L Chloride 103 (101-111) mmol/L Carbon Dioxide 29 (22-32) mmol/L Anion Gap 5 (2-11) mmol/L BUN 27 H (6-24) mg/dL Creatinine 0.82 (0.51-0.95) mg/dL Est GFR ( Amer) 87.2 (>60) Est GFR (Non-Af Amer) 67.8 (>60) BUN/Creatinine Ratio 32.9 H (8-20) Glucose 104 H (70-100) mg/dL Lactic Acid 1.3 (0.5-2.0) mmol/L Calcium 8.9 (8.6-10.3) mg/dL Total Bilirubin 0.60 (0.2-1.0) mg/dL AST 30 (13-39) U/L ALT 39 (7-52) U/L Alkaline Phosphatase 91 (34-104) U/L Troponin I 0.06 H* (<0.04) ng/mL B-Natriuretic Peptide ( - 100) pg/mL Total Protein 6.8 (6.4-8.9) g/dL Albumin 3.7 (3.2-5.2) g/dL Globulin 3.1 (2-4) g/dL Albumin/Globulin Ratio 1.2 (1-3) 07/25/17 Range/Units 21:05 WBC (3.5-10.8) 10^3/ul RBC (4.0-5.4) 10^6/ul Hgb (12.0-16.0) g/dl Hct (35-47) % MCV (80-97) fL MCH (27-31) pg MCHC (31-36) g/dl RDW (10.5-15) % Plt Count (150-450) 10^3/ul MPV (7.4-10.4) um3 Neut % (Auto) (38-83) % Lymph % (Auto) (25-47) % [place] % (Auto) (1-9) % Eos % (Auto) (0-6) % Baso % (Auto) (0-2) % Absolute Neuts (auto) (1.5-7.7) 10^3/ul Absolute Lymphs (auto) (1.0-4.8) 10^3/ul Absolute Monos (auto) (0-0.8) 10^3/ul Absolute Eos (auto) (0-0.6) 10^3/ul Absolute Basos (auto) (0-0.2) 10^3/ul Absolute Nucleated RBC 10^3/ul Nucleated RBC % Sodium (133-145) mmol/L Potassium (3.5-5.0) mmol/L Chloride (101-111) mmol/L Carbon Dioxide (22-32) mmol/L Anion Gap (2-11) mmol/L BUN (6-24) mg/dL Creatinine (0.51-0.95) mg/dL Est GFR ( Amer) (>60) Est GFR (Non-Af Amer) (>60) BUN/Creatinine Ratio (8-20) Glucose (70-100) mg/dL Lactic Acid (0.5-2.0) mmol/L Calcium (8.6-10.3) mg/dL Total Bilirubin (0.2-1.0) mg/dL AST (13-39) U/L ALT (7-52) U/L Alkaline Phosphatase (34-104) U/L Troponin I (<0.04) ng/mL B-Natriuretic Peptide 32 ( - 100) pg/mL Total Protein (6.4-8.9) g/dL Albumin (3.2-5.2) g/dL Globulin (2-4) g/dL Albumin/Globulin Ratio (1-3) Assess/Plan/Problems-Billing Assessment: - Patient Problems (1) CAD (coronary artery disease) Current Visit: No Status: Chronic Code(s): I25.10 - ATHSCL HEART DISEASE OF [place] CORONARY ARTERY W/O ANG PCTRS SNOMED Code(s): 83376784 Comment: ACS with troponin increased from 0.06 to 0.77 this admission. No more chest pain/pressure. Continue heparin, ASA, statin, BB. Dr. Arevalo to consult. NPO for now. (2) DM w/o complication type II Current Visit: No Status: Chronic Code(s): E11.9 - TYPE 2 DIABETES MELLITUS WITHOUT COMPLICATIONS SNOMED Code(s): 166249353 Comment: Lispro by SS. Hold metformin. (3) Morbid obesity Current Visit: No Status: Chronic Code(s): E66.01 - MORBID (SEVERE) OBESITY DUE TO EXCESS CALORIES SNOMED Code(s): 386613564 Comment: BMI 45.8. (4) HTN (hypertension) Current Visit: No Status: Chronic Code(s): I10 - ESSENTIAL (PRIMARY) HYPERTENSION SNOMED Code(s): 00736248 Comment: Continue BB, ARB, thiazide. (5) HLD (hyperlipidemia) Current Visit: No Status: Chronic Code(s): E78.5 - HYPERLIPIDEMIA, UNSPECIFIED SNOMED Code(s): 48386819 Comment: Patient picked up rosuvastatin 40 mg 90 day supply on 07/14/16 at [facility]. (6) GERD (gastroesophageal reflux disease) Current Visit: No Status: Chronic Code(s): K21.9 - GASTRO-ESOPHAGEAL REFLUX DISEASE WITHOUT ESOPHAGITIS SNOMED Code(s): 875907442 Comment: Continue omeprazole. (7) Memory deficit Current Visit: Yes Status: Acute Code(s): R41.3 - OTHER AMNESIA SNOMED Code(s): 090043432 Comment: Poor memory for distant events. Her only close relative is her nephew Handy Good who is her SDM.
[2016-09-23] MEDS: Metoprolol Succinate XL TAB* 100 MG PO SCH ×2 (09:09→20:47)
[2016-09-23] MEDS: Hydrochlorothiazide TAB* 25 MG PO SCH (09:12)
[2016-09-23] MEDS: Diltiazem CD CAP* 120 MG PO SCH (09:12)
[2016-09-23] MEDS: Aspirin Low Dose CHEW TAB* 81 MG PO SCH (09:16)
[2016-09-23] MEDS: Calcium Carbonate TAB* 1250 MG (CALCIUM 500 MG) PO SCH (09:16)
[2016-09-23] MEDS: Omeprazole CAP* 20 MG PO SCH (09:16)
[2016-09-23] MEDS: Vitamin THERAPEUTIC TAB PO SCH (09:16)
[2016-09-23] MEDS: Valsartan TAB* 160 MG PO SCH (09:16)
--- NOTE | 2016-09-23 13:56 | RAD ---
HISTORY: Confusion COMPARISONS: August 10, 2014 TECHNIQUE: Multiple contiguous axial CT scans were obtained of the head without intravenous contrast. FINDINGS: HEMORRHAGE/INFARCT: There is no hemorrhage or acute infarct. MASSES/SHIFT: There is no mass or shift. EXTRA-AXIAL SPACES: There are no extra-axial fluid collections. SULCI AND VENTRICLES: The sulci and ventricles are normal in size and position for the patient's stated age. CEREBRUM: There is hypoattenuation of the periventricular and subcortical white matter. BRAINSTEM: There are no focal parenchymal abnormalities. CEREBELLUM: There are no focal parenchymal abnormalities. VESSELS: There is calcification of the cavernous segments of the internal carotid arteries bilaterally. The vessels are tortuous. PARANASAL SINUSES: The paranasal sinuses are clear. ORBITS: The orbits are unremarkable. BONES AND SOFT TISSUE: No bone or soft tissue abnormalities are noted. OTHER: None IMPRESSION: 1. NO ACUTE INTRACRANIAL PATHOLOGY. 2. CHRONIC SMALL VESSEL ISCHEMIC CHANGE
--- NOTE | 2016-09-23 14:36 | CONS ---
CC: Dr. Dean; Alcides Morris; Hospitalist * CARDIOLOGY CONSULTATION: DATE OF CONSULT: 09/23/16 REASON FOR CONSULT: Chest pain and troponin elevation. CHIEF COMPLAINT: Nausea and chest pain. HISTORY OF PRESENT ILLNESS: Ms. Shea is a 76-year-old woman with known atherosclerotic heart disease with stent placement in the past. The patient this morning cannot remember why she came to the hospital and is a known poor historian, who appears to have some memory problems. In reviewing Dr. Ibanez's admission note of 09/22/16, she presented to the emergency room with chest pressure that started yesterday morning at 9. At that time, she denied any associations. Today, she mentioned that she had some nausea. The patient currently denies any chest pain, pressure, heaviness, or chest awareness. She denies any recent decline in exercise capacity and denies orthopnea or PND. PAST MEDICAL HISTORY: 1. Coronary artery disease, cardiac catheterization, 2014, left main 25%; LAD diagonal 80% to 85%; circumflex 45%, 75%; OM branch 90% (status post drug- eluting stent x2); right coronary artery dominant with 30% occlusion. Past angina included nausea, diaphoresis, left arm aching. 2. Insulin-dependent diabetes. 3. Hypertension. 4. Dyslipidemia. 5. Reflux. 6. Migraines. 7. Left foot drop. 8. Morbid obesity. 9. Distant stenting to the LAD. PAST SURGICAL HISTORY: Includes debridement of a tibial infection, 2013. MEDICATIONS: Current inpatient medications include: 1. Tylenol p.r.n. 2. Aspirin 81 mg a day. 3. Lipitor 80 mg a day. 4. Calcium carbonate 1250 mg a day. 5. Zyrtec 10 mg p.r.n. 6. Diltiazem 120 mg a day. 7. Heparin drip. 8. HydroDIURIL 25 mg a day. 9. Humalog insulin. 10. Toprol-XL 100 mg b.i.d. 11. MultiVites. 12. Patanol ophthalmic drops. 13. Prilosec 20 mg a day. 14. Ondansetron 4 mg p.r.n. 15. Valsartan 320 mg a day. ALLERGIES: Include LOYD INHIBITORS (coughing) and AMLODIPINE (rash). FAMILY HISTORY: Strongly positive for early atherosclerotic heart disease. According to the patient, her father had DE when she was age 19 and several siblings, although she is vague. 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 Stopped smoking in 1975. No history of alcohol or recreational drug use. REVIEW OF SYSTEMS: Review of systems was attempted. She states she has been compliant with her medications and no recent medication changes, but she is very vague and she also denies recent fevers, chills, sweats. She states she walks regularly, but cannot give me distance or amount of time, but she does say she walks regularly outside. PHYSICAL EXAM: On exam, the patient is 5 feet 4 inches, weighs 266 pounds with a BMI of 45. Current Vital Signs: She is afebrile, pulse is 69, respiratory rate is 18, oxygen saturation on room air 98%, blood pressure 114/50. On admission, pulse was 88, blood pressure 131/70. General Appearance: Morbidly obese, elderly woman, seated in bed at 20 to 30 degrees. She is comfortable, in no acute distress. Psychologically, pleasant and cooperative. Neurologically , awake, alert, and oriented to person and place. I did not evaluate for time. Memory seems poor as above. She follows commands well and moves extremities grossly normally in bed. Skin: Warm, dry, age appropriate changes. No appreciable cyanosis or rashes. HEENT: Pupils are equal and round. Mucous membranes were moist. Tongue midline. Neck: Without appreciable thyromegaly, lymphadenopathy. Easily palpable carotid pulses, questionable soft bruit in the right. Breath sounds were clear with good effort. No wheezes, rales, or rhonchi. Coronary: S1, S2 regular. I did not appreciate any murmurs, rubs, or extrasystole. Abdomen: Overweight. No epigastric discomfort. No obvious hepatomegaly. Lower extremities are quite thick from obesity, but no actual pitting edema and palpable posterior tibial pulses. Toes not examined. DIAGNOSTIC STUDIES/LAB DATA: 12-lead ECGs on admission from 09/22/16 at 2041 shows normal sinus rhythm, 65 beats a minute with 1 PAC, QRS axis +30, normal AV and IV conduction times. There is no evidence of significant ST changes. EKG today shows normal sinus rhythm, 69 beats a minute, QRS axis +15, normal AV and IV conduction times, and again no evidence of significant ST changes. She has a QS in lead III. Troponin # 1 0.06; troponin #2, 0.69, troponin #3, 0.77. Sodium 137, potassium 4.0, chloride 103, bicarb 29, glucose 104, BUN 27, creatinine 0.82. ALT of 39. Total cholesterol 165, triglycerides 92, HDL cholesterol 33, and LDL cholesterol 113. PTT 33.6. White count 6.7, hemoglobin 10.9, hematocrit 33, and platelets 272 (hematocrit has varied from a low of 29 in July of 2013; in 2014, her crit was 38; in October of 2014, it was 32 to 34; in November of 2015, 31). Cardiac catheterization: See history of present illness. Echocardiogram from 11/13/14 showed mild left ventricular hypertrophy with hypokinesis of the low posterior wall, ejection fraction of 50% to 55%, moderate mitral insufficiency, mild tricuspid insufficiency, and PA pressure estimated at 39 mmHg. IMPRESSION AND PLAN: In summary, Molly Shea is a 76-year-old woman with known atherosclerotic heart disease and stents to the left anterior descending artery and circumflex coronaries. Additionally, she has high-degree stenosis in small diagonal branches that is not amenable to stenting. The patient presented with chest pressure and is showing mild progressive elevation in troponins without evidence of significant EKG changes. The patient has a high atherosclerotic risk with multiple risk factors, she appears to have a significant dyslipidemia with high LDL cholesterol despite being on maximum atorvastatin therapy and the patient is at risk with her diabetes of having subtle or angina-free ischemia. She is chest pain free and then her poor memory and poor historical abilities are complicating ability to be confident in her history of presentation. I would like to continue her on her current medication. We are going to update an echo. I have discussed the case with Interventional Cardiology in terms of proceeding directly to cardiac catheterization or getting imaging. Currently, we will plan on getting the echo and proceeding. With memory issues, it raises possibility of poor medication compliance and in the future it may be worth verifying, she is taking her atorvastatin. Ideally, we will get her LDL cholesterol below 70 and we would therefore consider adding Zetia or she may be someone who would benefit from a PCSK9 inhibitor. Anemia is noted, appears chronic, outpatient records/work up not available at this time. In the interim, I would like to continue with her heparin drip and aggressive medical management that she has been on. Further recommendations will be made pending the results of her echo and her clinical course. [id number]/[facility] #: [id number] DEWEY
[2016-09-23] MEDS ORDERED: Atorvastatin* 80 MG TAB PO SCH (18:00)
[2016-09-24 04:54] LABS: Hematocrit 33 % (35-47); Hemoglobin 10.9 g/dl (12.0-16.0); Mean Corpuscular HGB Conc 33 g/dl (31-36); Mean Corpuscular Hemoglobin 30 pg (27-31); Mean Corpuscular Volume 92 fL (80-97); Mean Platelet Volume 7 um3 (7.4-10.4); Red Blood Count 3.58 10^6/ul (4.0-5.4); Red Cell Distribution Width 14 % (10.5-15); White Blood Count 8.2 10^3/ul (3.5-10.8)
[2016-09-24] MEDS: Insulin LISPRO* 1 UNITS UNIT SUBCUT SCH ×2 (05:49→13:10)
[2016-09-24] MEDS ORDERED: Aminophylline IV* 25 MG/ML 10 ML VIAL ONE (09:51)
[2016-09-24] MEDS ORDERED: Regadenoson* 0.4 MG/5 ML SYRINGE ONE (09:51)
--- NOTE | 2016-09-24 11:08 | RAD ---
INDICATION: Elevated troponin. COMPARISON: Comparison is made with prior study from November 07, 2014. Technique: A single day myocardial perfusion stress study was performed. Initially the resting study was performed. The patient was given an intravenous injection of 11.0 mCi of technetium 99m tetrofosmin and and the heart was imaged in multiple projections. The patient returned later in the day and under the direction of Dr. Brown, the patient was given intervenous injection of Lexiscan. Subsequently the patient was given intravenous injection of 25.3 mCi of technetium 99m tetrofosmin and the heart was imaged in multiple projections. Images were reconstructed in the axial, sagittal and coronal planes and in a 3-D format. FINDINGS: There appears to be normal wall motion and myocardial thickening. The left ventricular ejection fraction was calculated to be 67%. Review of the images demonstrates a small area of decreased activity in the anteroseptal wall on the post pharmacologic stress images which appears improved on the resting data set suggestive of a small area of ischemia. There was otherwise normal distribution of radiopharmaceutical. IMPRESSION: FINDINGS SUGGESTIVE OF A SMALL AREA OF ISCHEMIA IN THE ANTEROSEPTAL WALL. ASSESSMENT: Low risk. Based on imaging criteria from ACC/AHA 2002 Guideline Update for the Management of Patients With Chronic Stable Angina Table 23. Noninvasive Risk Stratification.
[2016-09-24 11:25] VITALS: BP 130/85
[2016-09-24] MEDS: Valsartan TAB* 160 MG PO SCH (11:26)
[2016-09-24] MEDS: Vitamin THERAPEUTIC TAB PO SCH (11:26)
[2016-09-24] MEDS: Metoprolol Succinate XL TAB* 100 MG PO SCH (11:27)
[2016-09-24] MEDS: Omeprazole CAP* 20 MG PO SCH (11:27)
[2016-09-24] MEDS: Calcium Carbonate TAB* 1250 MG (CALCIUM 500 MG) PO SCH (11:29)
[2016-09-24] MEDS: Hydrochlorothiazide TAB* 25 MG PO SCH (11:29)
[2016-09-24] MEDS: Diltiazem CD CAP* 120 MG PO SCH (11:29)
[2016-09-24] MEDS: Aspirin Low Dose CHEW TAB* 81 MG PO SCH (11:30)
--- NOTE | 2016-09-24 12:07 | PN ---
Progress Note - Progress Note Date of Service: 09/24/16 Note: Fernie Good (cell: [phone]) is her HCP.
--- NOTE | 2016-09-24 12:36 | DCNOTE ---
Subjective Date of Service: 09/24/16 Interval History: No more chest pressure since admission. Nonew c/o. Anxious to go home. Objective Active Medications: Acetaminophen (Tylenol Tab*) 650 mg PO Q6H PRN PRN Reason: PAIN Aspirin (Aspirin Low Dose Tab*) 81 mg PO DAILY [facility] Last Admin: 09/24/16 11:30 Dose: 81 mg Atorvastatin Calcium (Lipitor*) 80 mg PO QPM [facility] Last Admin: 09/23/16 17:17 Dose: 80 mg Calcium Carbonate (Calcium Carbonate Tab*) 1,250 mg PO DAILY [facility] Last Admin: 09/24/16 11:29 Dose: 1,250 mg Cetirizine HCl (Zyrtec*) 10 mg PO DAILY PRN; Protocol PRN Reason: ALLERGIES Dextrose (D50w Syringe 50 Ml*) 12.5 gm IV PUSH .FOR FS < 60 - SS PRN PRN Reason: FS < 60 Diltiazem HCl (Cardizem Cd Cap*) 120 mg PO DAILY [facility] Last Admin: 09/24/16 11:29 Dose: 120 mg Heparin Sodium (Porcine) (Heparin Vial(*)) 0 units IV .PER PROTOCOL [facility] PRN Reason: Protocol Hydrochlorothiazide (Hydrodiuril Tab*) 25 mg PO DAILY [facility] Last Admin: 09/24/16 11:29 Dose: 25 mg Heparin Sodium/Dextrose (Heparin Drip 25,000 Units(*)) 25,000 units in 500 mls @ 0 mls/hr IV .NO INITIAL BOLUS [facility]; As Directed PRN Reason: Protocol Last Admin: 09/23/16 23:33 Dose: 18 mls/hr Insulin Human Lispro (Humalog*) 0 units SUBCUT Q6HR MARY PRN Reason: Protocol Last Admin: 09/24/16 05:49 Dose: Not Given Metoprolol Succinate (Toprol Xl Tab*) 100 mg PO BID [facility] Last Admin: 09/24/16 11:27 Dose: 100 mg Multivitamins (Theragran Tab*) 1 tab PO DAILY [facility] Last Admin: 09/24/16 11:26 Dose: 1 tab Olopatadine HCl (Patanol 0.1% Ophth (Nf)) 1 drop BOTH EYES BID PRN; Protocol PRN Reason: IRRITATTION Omeprazole (Prilosec Cap*) 20 mg PO DAILY [facility] Last Admin: 09/24/16 11:27 Dose: 20 mg Ondansetron HCl (Zofran Odt Tab*) 4 mg SL Q4H PRN PRN Reason: NAUSEA Last Admin: 09/23/16 01:17 Dose: 4 mg Valsartan (Diovan Tab*) 320 mg PO DAILY MARY Last Admin: 09/24/16 11:26 Dose: 320 mg Vital Signs 09/23/16 09/23/16 09/23/16 12:30 12:40 12:50 Temperature Pulse Rate Respiratory 13 9 10 Rate Blood Pressure (mmHg) O2 Sat by Pulse Oximetry 09/23/16 09/23/16 09/23/16 13:00 13:10 13:20 Temperature Pulse Rate Respiratory 10 10 11 Rate Blood Pressure (mmHg) O2 Sat by Pulse Oximetry 09/23/16 09/23/16 09/23/16 13:30 13:47 13:50 Temperature Pulse Rate Respiratory 22 16 19 Rate Blood Pressure (mmHg) O2 Sat by Pulse Oximetry 09/23/16 09/23/16 09/23/16 14:00 14:10 14:20 Temperature Pulse Rate Respiratory 6 12 13 Rate Blood Pressure (mmHg) O2 Sat by Pulse Oximetry 09/23/16 09/23/16 09/23/16 14:30 14:40 14:50 Temperature Pulse Rate Respiratory 8 14 11 Rate Blood Pressure (mmHg) O2 Sat by Pulse Oximetry 09/23/16 09/23/16 09/23/16 15:00 15:10 15:20 Temperature Pulse Rate Respiratory 16 13 44 Rate Blood Pressure (mmHg) O2 Sat by Pulse Oximetry 09/23/16 09/23/16 09/23/16 15:30 15:40 15:50 Temperature Pulse Rate Respiratory 13 17 18 Rate Blood Pressure (mmHg) O2 Sat by Pulse Oximetry 09/23/16 09/23/16 09/23/16 15:52 16:00 16:10 Temperature 98.6 F Pulse Rate 71 Respiratory 18 26 13 Rate Blood Pressure 135/71 (mmHg) O2 Sat by Pulse 98 Oximetry 09/23/16 09/23/16 09/23/16 16:20 16:30 16:40 Temperature Pulse Rate Respiratory 8 10 11 Rate Blood Pressure (mmHg) O2 Sat by Pulse Oximetry 09/23/16 09/23/16 09/23/16 16:50 17:00 17:10 Temperature Pulse Rate Respiratory 4 27 19 Rate Blood Pressure (mmHg) O2 Sat by Pulse Oximetry 09/23/16 09/23/16 09/23/16 17:20 17:30 17:40 Temperature Pulse Rate Respiratory 14 20 14 Rate Blood Pressure (mmHg) O2 Sat by Pulse Oximetry 09/23/16 09/23/16 09/23/16 17:50 18:00 18:10 Temperature Pulse Rate Respiratory 16 13 16 Rate Blood Pressure (mmHg) O2 Sat by Pulse Oximetry 09/23/16 09/23/16 09/23/16 18:20 18:30 18:40 Temperature Pulse Rate Respiratory 13 19 15 Rate Blood Pressure (mmHg) O2 Sat by Pulse Oximetry 09/23/16 09/23/16 09/23/16 18:50 19:00 19:10 Temperature Pulse Rate Respiratory 15 14 15 Rate Blood Pressure (mmHg) O2 Sat by Pulse Oximetry 09/23/16 09/23/16 09/23/16 19:20 19:30 19:34 Temperature 98.0 F Pulse Rate 70 Respiratory 14 22 16 Rate Blood Pressure 150/75 (mmHg) O2 Sat by Pulse 100 Oximetry 09/23/16 09/23/16 09/24/16 20:00 23:53 03:51 Temperature 98.3 F 98.1 F Pulse Rate 68 64 Respiratory 14 18 18 Rate Blood Pressure 132/72 143/70 (mmHg) O2 Sat by Pulse 94 95 Oximetry 09/24/16 09/24/16 09/24/16 06:46 07:44 11:23 Temperature 98.1 F 98.4 F Pulse Rate 59 66 Respiratory 18 16 16 Rate Blood Pressure 126/63 130/85 (mmHg) O2 Sat by Pulse 98 97 Oximetry 09/24/16 11:50 Temperature Pulse Rate Respiratory 16 Rate Blood Pressure (mmHg) O2 Sat by Pulse Oximetry Oxygen Devices in Use Now: None Appearance: Alert, sitting on the edge of her bed. In good spirits. Looks comfortable. Eyes: No Scleral Icterus Respiratory: Symmetrical Chest Expansion and Respiratory Effort, Clear to Auscultation, Clear to Percussion Cardiovascular: NL Sounds; No Murmurs; No JVD, RRR, No Edema, - Extremities: No Edema, No Clubbing, Cyanosis, - - L lower leg chronically larger than R Skin: No Rash or Ulcers, No Nodules or Sclerosis Neurological: Alert and Oriented x 3, NL Sensation, NL Gait Result Diagrams: 09/24/16 04:23 09/23/16 05:15 Additional Lab and Data: Lab Results 09/22/16 09/22/16 09/22/16 Range/Units 21:05 21:05 21:05 WBC 8.2 (3.5-10.8) 10^3/ul RBC 3.61 L (4.0-5.4) 10^6/ul Hgb 10.8 L (12.0-16.0) g/dl Hct 33 L (35-47) % MCV 92 (80-97) fL MCH 30 (27-31) pg MCHC 33 (31-36) g/dl RDW 14 (10.5-15) % Plt Count 277 (150-450) 10^3/ul MPV 7 L (7.4-10.4) um3 Neut % (Auto) 64.5 (38-83) % Lymph % (Auto) 22.7 L (25-47) % [place] % (Auto) 8.2 (1-9) % Eos % (Auto) 3.6 (0-6) % Baso % (Auto) 1.0 (0-2) % Absolute Neuts (auto) 5.3 (1.5-7.7) 10^3/ul Absolute Lymphs (auto) 1.8 (1.0-4.8) 10^3/ul Absolute Monos (auto) 0.7 (0-0.8) 10^3/ul Absolute Eos (auto) 0.3 (0-0.6) 10^3/ul Absolute Basos (auto) 0.1 (0-0.2) 10^3/ul Absolute Nucleated RBC 0 10^3/ul Nucleated RBC % 0 Sodium 137 (133-145) mmol/L Potassium 4.0 (3.5-5.0) mmol/L Chloride 103 (101-111) mmol/L Carbon Dioxide 29 (22-32) mmol/L Anion Gap 5 (2-11) mmol/L BUN 27 H (6-24) mg/dL Creatinine 0.82 (0.51-0.95) mg/dL Est GFR ( Amer) 87.2 (>60) Est GFR (Non-Af Amer) 67.8 (>60) BUN/Creatinine Ratio 32.9 H (8-20) Glucose 104 H (70-100) mg/dL Lactic Acid 1.3 (0.5-2.0) mmol/L Calcium 8.9 (8.6-10.3) mg/dL Total Bilirubin 0.60 (0.2-1.0) mg/dL AST 30 (13-39) U/L ALT 39 (7-52) U/L Alkaline Phosphatase 91 (34-104) U/L Troponin I 0.06 H* (<0.04) ng/mL B-Natriuretic Peptide ( - 100) pg/mL Total Protein 6.8 (6.4-8.9) g/dL Albumin 3.7 (3.2-5.2) g/dL Globulin 3.1 (2-4) g/dL Albumin/Globulin Ratio 1.2 (1-3) 07/25/17 Range/Units 21:05 WBC (3.5-10.8) 10^3/ul RBC (4.0-5.4) 10^6/ul Hgb (12.0-16.0) g/dl Hct (35-47) % MCV (80-97) fL MCH (27-31) pg MCHC (31-36) g/dl RDW (10.5-15) % Plt Count (150-450) 10^3/ul MPV (7.4-10.4) um3 Neut % (Auto) (38-83) % Lymph % (Auto) (25-47) % [place] % (Auto) (1-9) % Eos % (Auto) (0-6) % Baso % (Auto) (0-2) % Absolute Neuts (auto) (1.5-7.7) 10^3/ul Absolute Lymphs (auto) (1.0-4.8) 10^3/ul Absolute Monos (auto) (0-0.8) 10^3/ul Absolute Eos (auto) (0-0.6) 10^3/ul Absolute Basos (auto) (0-0.2) 10^3/ul Absolute Nucleated RBC 10^3/ul Nucleated RBC % Sodium (133-145) mmol/L Potassium (3.5-5.0) mmol/L Chloride (101-111) mmol/L Carbon Dioxide (22-32) mmol/L Anion Gap (2-11) mmol/L BUN (6-24) mg/dL Creatinine (0.51-0.95) mg/dL Est GFR ( Amer) (>60) Est GFR (Non-Af Amer) (>60) BUN/Creatinine Ratio (8-20) Glucose (70-100) mg/dL Lactic Acid (0.5-2.0) mmol/L Calcium (8.6-10.3) mg/dL Total Bilirubin (0.2-1.0) mg/dL AST (13-39) U/L ALT (7-52) U/L Alkaline Phosphatase (34-104) U/L Troponin I (<0.04) ng/mL B-Natriuretic Peptide 32 ( - 100) pg/mL Total Protein (6.4-8.9) g/dL Albumin (3.2-5.2) g/dL Globulin (2-4) g/dL Albumin/Globulin Ratio (1-3) Assess/Plan/Problems-Billing Assessment: - Patient Problems (1) CAD (coronary artery disease) Current Visit: No Status: Chronic Code(s): I25.10 - ATHSCL HEART DISEASE OF [place] CORONARY ARTERY W/O ANG PCTRS SNOMED Code(s): 54665453 Comment: ACS with troponin increased from 0.06 to 0.77 this admission. No more chest pain/pressure. Continue heparin, ASA, statin, BB. Stress test shows small area of ischemia. I spoke with Dr. Enamorado yesterday who said he would only intervene if there was a moderate or large area of ischemia on the nuclear stress test. I advised pt and her nephew to make sure her NTG was not more than 6 months old. (2) DM w/o complication type II Current Visit: No Status: Chronic Code(s): E11.9 - TYPE 2 DIABETES MELLITUS WITHOUT COMPLICATIONS SNOMED Code(s): 059598975 Comment: Resume metformin. (3) Morbid obesity Current Visit: No Status: Chronic Code(s): E66.01 - MORBID (SEVERE) OBESITY DUE TO EXCESS CALORIES SNOMED Code(s): 753906184 Comment: BMI 45.8. (4) HTN (hypertension) Current Visit: No Status: Chronic Code(s): I10 - ESSENTIAL (PRIMARY) HYPERTENSION SNOMED Code(s): 57666106 Comment: Continue BB, ARB, thiazide. (5) HLD (hyperlipidemia) Current Visit: No Status: Chronic Code(s): E78.5 - HYPERLIPIDEMIA, UNSPECIFIED SNOMED Code(s): 73420955 Comment: Patient picked up rosuvastatin 40 mg 90 day supply on 07/14/16 at [facility]. (6) GERD (gastroesophageal reflux disease) Current Visit: No Status: Chronic Code(s): K21.9 - GASTRO-ESOPHAGEAL REFLUX DISEASE WITHOUT ESOPHAGITIS SNOMED Code(s): 320324560 Comment: Continue omeprazole. (7) Memory deficit Current Visit: Yes Status: Acute Code(s): R41.3 - OTHER AMNESIA SNOMED Code(s): 538417093 Comment: Poor memory for distant events. Her only close relative is her nephew Handy Good who is her SDM. (8) Elevated TSH Current Visit: Yes Status: Acute Code(s): R94.6 - ABNORMAL RESULTS OF THYROID FUNCTION STUDIES SNOMED Code(s): 893304126 Comment: Last checked here 10/2014, may have been checked in the [place] office. Addon TSH requested. Status and Disposition: Discharge now. Fup Dr. Dean.
--- NOTE | 2016-09-24 12:56 | PN ---
Progress Note - Progress Note Date of Service: 09/24/16 Note: Time spent on discharge 45 minutes.
--- NOTE | 2016-09-25 06:35 | DS ---
CC: Dr. Dean DISCHARGE SUMMARY: DATE OF ADMISSION: DATE OF DISCHARGE: 09/24/16 HISTORY OF PRESENT ILLNESS: This 76-year-old woman presented with chest pressure. She was a somewha t poor historian. The pain started about 9 in the morning. The patient had a suspicious story and has a history of known coronary artery disease with prior [place] and coronary artery stenting. She was admitted to the telemetry unit. She had an initial troponin level of 0.06, it james to 0.77. She had an echocardiogram on 09/23/16, which showed ejection fracti on of 55% to 60%. There was abnormal left ventricular diastolic filling. There was mild pulmonary h ypertension, mild mitral regurgitation, and mild tricuspid regurgitation. There was mild left ventr icular hypertrophy. The study was technically limited due to body habitus. The patient underwent a nuclear medicine stress test on 09/24/16. There was normal wall motion and myocardial thickening. The ejection fraction was estimated to be 67%. There was a small area of de creased activity in the anteroseptal wall, which improved on the resting data, suggestive of a small area of ischemia. I spoke to Dr. Enamorado on 09/23/16. He said he would only intervene if the stress test showed modera te or large area of ischemia. The patient was symptom-free after admission to the hospital. She will go home on the same medicati ons. I advised her to make sure her nitroglycerin was not more than 6 months old. An add-on TSH is pending. I note the last one done here in 2014 was slightly elevated. I suspect th ere may be more TSH levels done at Dr. Dean's office. In any event, the add-on level TSH level s should be available later today. FINAL DIAGNOSES: 1. Acute coronary syndrome. 2. Diabetes. 3. Morbid obesity. 4. Hypertension. 5. Hyperlipidemia. 6. Gastroesophageal reflux disease. 7. Memory deficit. 8. Elevated TSH. DISCHARGE MEDICATIONS: 1. Metoprolol succinate 100 mg b.i.d. 2. Hydrochlorothiazide 25 mg daily. 3. Olmesartan 40 mg daily. 4. Metformin 500 mg b.i.d. 5. Olopatadine 0.1% one drop both eyes b.i.d. p.r.n. 6. Diltiazem CD 120 mg daily. 7. Cetirizine 10 mg daily p.r.n. 8. Atorvastatin 80 mg at h.s. 9. Acetaminophen 650 mg every 6 hours p.r.n. 10. Calcium 1000 mg daily. 11. Multivitamin daily. 12. Omeprazole 20 mg daily. 13. Ondansetron ODT 4 mg sublingual every 4 hours p.r.n. 14. Aspirin 81 mg daily. [id number]/[facility] #: [id number]
== END 2016-09-24 13:40 | disposition home or self-care (01) | DRG 303 ==
LOC: ED 20:27 → MEDTELE 23:25 → OBSVTOIN 09-23 11:46
PROVIDERS: ADMIT Internal Medicine; ATTEND Internal Medicine
DX: I25.10 Atherosclerotic heart disease of native coronary artery without angina pectoris (principal); I27.2 Other secondary pulmonary hypertension; Z68.42 Body mass index [BMI] 45.0-49.9, adult; I24.9 Acute ischemic heart disease, unspecified; E66.01 Morbid (severe) obesity due to excess calories; I08.1 Rheumatic disorders of both mitral and tricuspid valves; E11.9 Type 2 diabetes mellitus without complications; Z96.652 Presence of left artificial knee joint; E78.00 Pure hypercholesterolemia, unspecified; I10 Essential (primary) hypertension; K21.9 Gastro-esophageal reflux disease without esophagitis; M81.0 Age-related osteoporosis without current pathological fracture; M17.11 Unilateral primary osteoarthritis, right knee; M19.042 Primary osteoarthritis, left hand; M19.041 Primary osteoarthritis, right hand; G43.909 Migraine, unspecified, not intractable, without status migrainosus; E78.5 Hyperlipidemia, unspecified; D64.9 Anemia, unspecified; R41.3 Other amnesia; M21.372 Foot drop, left foot; R94.6 Abnormal results of thyroid function studies; Z79.84 Long term (current) use of oral hypoglycemic drugs; Z79.82 Long term (current) use of aspirin; Z82.49 Family history of ischemic heart disease and other diseases of the circulatory system; Z88.8 Allergy status to other drugs, medicaments and biological substances; Z87.891 Personal history of nicotine dependence; Z90.49 Acquired absence of other specified parts of digestive tract; Z95.5 Presence of coronary angioplasty implant and graft; I25.2 Old myocardial infarction
CPT/HCPCS: 36415; 70450; 71010; 78452; 80053; 80061; 83036; 83605; 83880; 84443; 84484; 84520; 85025; 85730; 93005; 93017; 93306; A9270-GY; A9502; G0378; J0280; J1644; J2785

== ENCOUNTER 2016-10-15 09:29 | Emergency (ER) | payer MEDICARE, BC ==
--- NOTE | 2016-10-15 10:50 | RAD ---
Indication: Hallucinations. 2 views of the chest including dual energy PA views demonstrates no mediastinal shift. Heart is of normal size and configuration. Lung espinoza appear clear. When compared to previous exam of September 22, 2016 no significant change is noted. IMPRESSION: No active cardiopulmonary disease is identified.
--- NOTE | 2016-10-15 11:34 | RAD ---
INDICATION: Hallucinations COMPARISON: CT brain September 23, 2016 TECHNIQUE: Noncontrast axial source images were acquired from the skull base to the vertex. FINDINGS: Ventricles/sulci: There is mild age-related cortical atrophy with compensatory dilatation of the CSF spaces. Brain parenchyma: There is mild periventricular and subcortical white matter change compatible with chronic ischemia. Intracranial hemorrhage:None. Extra-axial spaces: There are no abnormal extra axial fluid collections or evidence of extra-axial mass. Calvarium: There is no calvarial fracture or other calvarial abnormality. Scalp: There is no evidence of scalp or extracalvarial soft tissue abnormality. Paranasal sinuses/mastoid: The paranasal sinuses and mastoid air cells are clear. Other: None. IMPRESSION: CORTICAL ATROPHY WITH CHRONIC MICROVASCULAR ISCHEMIC CHANGES. NO ACUTE FINDINGS.
[2016-10-15 11:49] LABS: Hematocrit 37 % (35-47); Hemoglobin 12.2 g/dl (12.0-16.0); Mean Corpuscular HGB Conc 33 g/dl (31-36); Mean Corpuscular Hemoglobin 30 pg (27-31); Mean Corpuscular Volume 92 fL (80-97); Mean Platelet Volume 7 um3 (7.4-10.4); Red Blood Count 4.05 10^6/ul (4.0-5.4); Red Cell Distribution Width 14 % (10.5-15); White Blood Count 6.8 10^3/ul (3.5-10.8)
[2016-10-15 12:11] LABS: ALT 18 U/L (7-52); AST 18 U/L (13-39); Albumin 4.1 g/dL (3.2-5.2); Alkaline Phosphatase 98 U/L (34-104); Anion Gap 5 mmol/L (2-11); BUN/Creatinine Ratio 27.5 (8-20); Blood Urea Nitrogen 22 mg/dL (6-24); CO2 Carbon Dioxide 29 mmol/L (22-32); Calcium 9.5 mg/dL (8.6-10.3); Chloride 105 mmol/L (101-111); EGFR African American 89.7 (>60); EGFR Non-African American 69.7 (>60); Globulin 3.2 g/dL (2-4); Glucose 116 mg/dL (70-100); Potassium 3.9 mmol/L (3.5-5.0); Sodium 139 mmol/L (133-145); Total Protein 7.3 g/dL (6.4-8.9)
[2016-10-15 12:15] LABS: Acetaminophen < 15 mcg/mL; Alcohol < 10 mg/dL (<10); Salicylate < 2.50 mg/dL (<30)
[2016-10-15 12:24] LABS: TSH (Thyroid Stimulating Horm) 2.49 mcIU/mL (0.34-5.60)
[2016-10-15 12:47] LABS: Urine Bacteria 2+ (Absent); Urine Bilirubin Negative (Negative); Urine Glucose Negative (Negative); Urine Nitrite Negative (Negative)
[2016-10-15 12:57] LABS: Benzodiazepine Urine Screen None Detected (None Detect)
[2016-10-15 16:02] LABS: Urine Bacteria 1+ (Absent); Urine Bilirubin Negative (Negative); Urine Glucose Negative (Negative); Urine Nitrite Negative (Negative)
[2016-10-15 17:30] VITALS: BP 123/62
[2016-10-15] MEDS ORDERED: Ciprofloxacin TAB* 250 MG PO ONE (18:07)
--- NOTE | 2016-10-16 12:14 | ED ---
Chepe Palafox Rebecca, scribed for Tulio Lanier MD on 10/15/16 at 1021 . Altered Mental Status - HPI Summary HPI Summary: Pt is a 76 y/o F who presents to ED c/o visual hallucinations. At approximately 0700 this morning she reports seeing "a little person in a jar." Reports sx resolved shortly after a brief episode. Sx aggravated by nothing, alleviated by spontaneous resolution. Denies auditory hallucinations, acute COBOS, CP, SOB, diarrhea and constipation. Reports she has a chronic COBOS. No prior similar episodes. - History Of Current Complaint Chief Complaint: EDMentalHealth Stated Complaint: AMS Time Seen by Provider: 10/15/16 09:59 Hx Obtained From: Patient Onset/Duration: Resolved Severity Currently: None Aggravating Factor(s): Nothing Alleviating Factor(s): Other - Spontaneous resolution Associated Signs And Symptoms: Positive: Negative - Allergies/Home Medications Allergies/Adverse Reactions: Allergies Allergy/AdvReac Type Severity Reaction Status Date / Time LOYD Inhibitors Allergy Coughing Verified 10/15/16 09:40 Amlodipine [From [facility]] Allergy Rash Verified 10/15/16 09:40 Home Medications: Home Medications Acetaminophen TAB* [Tylenol TAB*] 650 mg PO Q6H PRN 10/15/16 [History Confirmed 10/15/16] Carvedilol TAB* [Coreg TAB*] 25 mg PO BID WITH MEALS 10/15/16 [History Confirmed 10/15/16] Clopidogrel TAB* [Plavix TAB*] 75 mg PO DAILY 10/15/16 [History Confirmed ] Taclnudegek-Buqetfzdsso-Klx C- [Glucosamine Chondroitin] 1 tab PO BID 10/15/16 [ History Confirmed 10/15/16] Multivitamins/Minerals TAB* [Theragran/minerals TAB*] 1 tab PO DAILY 10/15/16 [ History Confirmed 10/15/16] Nitroglycerin TAB 0.4 MG* 0.4 mg SL Q5M PRN 10/15/16 [History Confirmed 10/15/16 ] Nortriptyline CAP* [Pamelor CAP*] 20 mg PO BEDTIME 10/15/16 [History Confirmed 10/15/16] Olmesartan Medoxomil-Hydrochlo [Olmesartan Medoxomil/Hydr 40-25 mg] 1 tab PO DAILY 10/15/16 [History Confirmed 10/15/16] Olopatadine 0.1% OPHTH (NF) [Patanol 0.1% OPHTH (NF)] 1 drop BOTH EYES DAILY [History Confirmed 10/15/16] Rosuvastatin (NF) [Crestor (NF)] 40 mg PO DAILY 10/15/16 [History Confirmed ] Spironolactone TAB* [Aldactone TAB*] 25 mg PO DAILY 10/15/16 [History Confirmed 10/15/16] PMH/Surg Hx/FS Hx/Imm Hx Endocrine/Hematology History: Reports: Hx Diabetes Denies: Hx Bone Marrow Disease, Hx Sickle Cell Disease, Hx Anemia Cardiovascular History: Reports: Hx Angina, Hx Coronary Artery Disease, Hx Hypercholesterolemia, Hx Hypertension, Hx Myocardial Infarction - 2 in 10 years , Other Cardiovascular Problems/Disorders - IDDM Denies: Hx Congestive Heart Failure, Hx Valvular Heart Disease Respiratory History: Denies: Hx Asthma, Hx Chronic Obstructive Pulmonary Disease (COPD) GI History: Reports: Hx Gall Bladder Disease - removed, Hx Gastroesophageal Reflux Disease Denies: Hx Ulcer History: Denies: Hx Renal Disease Musculoskeletal History: Reports: Hx Arthritis - knees, hands, Hx Osteoporosis Sensory History: Reports: Hx Contacts or Glasses Denies: Hx Hearing Aid Opthamlomology History: Reports: Hx Contacts or Glasses Neurological History: Reports: Hx Headaches, Hx Migraine Psychiatric History: Denies: Hx Anxiety, Hx Depression - Cancer History Hx Chemotherapy: No - Surgical History Surgery Procedure, Year, and Place: left knee total replacement 2012 [facility],. cholecystectomy 5-6 years ago in [facility]. 2014 - left ankle orif. HEART CATH WITH 2 STENTS Hx Anesthesia Reactions: No Infectious Disease History: Yes Infectious Disease History: Denies: Traveled Outside the [place] in Last 30 Days - Family History Known Family History: Positive: Cardiac Disease - CAD (both parents) - Social History Alcohol Use: None Substance Use Type: Reports: None Hx Tobacco Use: Yes Smoking Status (MU): Former Smoker Type: Cigarettes Have You Smoked in the Last Year: No Review of Systems Negative: Chest Pain Negative: Shortness Of Breath Positive: Other - NEGATIVE: constipation. Negative: Diarrhea Neurological: Other - Visual hallucination (resolved); NEGATIVE: auditory hallucination Negative: Headache All Other Systems Reviewed And Are Negative: Yes Physical Exam - Summary Physical Exam Summary: VITAL SIGNS: Reviewed. GENERAL: ~Patient is a well-developed and nourished female who is lying comfortable in the stretcher. ~Patient is not in any acute respiratory distress. HEAD AND FACE: No signs of trauma. ~No ecchymosis, hematomas or skull depressions. No sinus tenderness. EYES: PERRLA, EOMI x 2, No injected conjunctiva, no nystagmus. EARS: Hearing grossly intact. Ear canals and tympanic membranes are within normal limits. MOUTH: Oropharynx within normal limits. NECK: Supple, trachea is midline, no adenopathy, no JVD, no carotid bruit, no c- spine tenderness, neck with full ROM. CHEST: Symmetric, no tenderness at palpation LUNGS: Clear to auscultation bilaterally. No wheezing or crackles. CVS: Regular rate and rhythm, S1 and S2 present, no murmurs or gallops appreciated. ABDOMEN: Soft, non-tender. No signs of distention. No rebound no guarding, and no masses palpated. Bowel sounds are normal. EXTREMITIES: FROM in all major joints, no edema, no cyanosis or clubbing. NEURO: Alert and oriented x 3. No acute neurological deficits. Speech is normal and follows commands. SKIN: Dry and warm Triage Information Reviewed: Yes Vital Signs On Initial Exam: Initial Vitals Temp Pulse Resp BP Pulse Ox 98.5 F 99 16 163/112 100 10/15/16 09:40 10/15/16 09:40 10/15/16 09:40 10/15/16 09:40 10/15/16 09:40 Vital Signs Reviewed: Yes - Dodie Coma Scale Best Eye Response: 4 - Spontaneous Best Motor Response: 6 - Obeys Commands Best Verbal Response: 5 - Oriented Diagnostics - Vital Signs Vital Signs Temp Pulse Resp BP Pulse Ox 10/15/16 10:04 97.8 F 67 18 142/68 99 10/15/16 09:40 98.5 F 99 16 163/112 100 - Laboratory Lab Results: Lab Results 10/15/16 10/15/16 10/15/16 Range/Units 11:25 11:25 12:20 WBC 6.8 (3.5-10.8) 10^3/ul RBC 4.05 (4.0-5.4) 10^6/ul Hgb 12.2 (12.0-16.0) g/dl Hct 37 (35-47) % MCV 92 (80-97) fL MCH 30 (27-31) pg MCHC 33 (31-36) g/dl RDW 14 (10.5-15) % Plt Count 295 (150-450) 10^3/ul MPV 7 L (7.4-10.4) um3 Neut % (Auto) 69.2 (38-83) % Lymph % (Auto) 16.5 L (25-47) % [place] % (Auto) 9.9 H (1-9) % Eos % (Auto) 3.4 (0-6) % Baso % (Auto) 1.0 (0-2) % Absolute Neuts (auto) 4.7 (1.5-7.7) 10^3/ul Absolute Lymphs (auto) 1.1 (1.0-4.8) 10^3/ul Absolute Monos (auto) 0.7 (0-0.8) 10^3/ul Absolute Eos (auto) 0.2 (0-0.6) 10^3/ul Absolute Basos (auto) 0.1 (0-0.2) 10^3/ul Absolute Nucleated RBC 0 10^3/ul Nucleated RBC % 0 Sodium 139 (133-145) mmol/L Potassium 3.9 (3.5-5.0) mmol/L Chloride 105 (101-111) mmol/L Carbon Dioxide 29 (22-32) mmol/L Anion Gap 5 (2-11) mmol/L BUN 22 (6-24) mg/dL Creatinine 0.80 (0.51-0.95) mg/dL Est GFR ( Amer) 89.7 (>60) Est GFR (Non-Af Amer) 69.7 (>60) BUN/Creatinine Ratio 27.5 H (8-20) Glucose 116 H (70-100) mg/dL Calcium 9.5 (8.6-10.3) mg/dL Total Bilirubin 0.60 (0.2-1.0) mg/dL AST 18 (13-39) U/L ALT 18 (7-52) U/L Alkaline Phosphatase 98 (34-104) U/L Total Protein 7.3 (6.4-8.9) g/dL Albumin 4.1 (3.2-5.2) g/dL Globulin 3.2 (2-4) g/dL Albumin/Globulin Ratio 1.3 (1-3) TSH 2.49 (0.34-5.60) mcIU/mL Urine Color Yellow Urine Appearance Clear Urine pH 6.0 (5-9) Ur Specific [place] 1.005 L (1.010-1.030) Urine Protein Negative (Negative) Urine Ketones Negative (Negative) Urine Blood Negative (Negative) Urine Nitrate Negative (Negative) Urine Bilirubin Negative (Negative) Urine Urobilinogen Negative (Negative) Ur Leukocyte Esterase Trace H (Negative) Urine WBC (Auto) Trace(0-5/hpf) (Absent) Urine RBC (Auto) Trace(0-2/hpf) (Absent) Ur Squamous Epith Cells Present H (Absent) Urine Bacteria 2+ H (Absent) Urine Glucose Negative (Negative) Salicylates < 2.50 (<30) mg/dL Urine Opiates Screen (None Detect) Acetaminophen < 15 mcg/mL Ur Barbiturates Screen (None Detect) Ur Phencyclidine Scrn (None Detect) Ur Amphetamines Screen (None Detect) U Benzodiazepines Scrn (None Detect) Urine Cocaine Screen (None Detect) U Cannabinoids Screen (None Detect) Serum Alcohol < 10 (<10) mg/dL 10/15/16 10/15/16 Range/Units 12:20 15:20 WBC (3.5-10.8) 10^3/ul RBC (4.0-5.4) 10^6/ul Hgb (12.0-16.0) g/dl Hct (35-47) % MCV (80-97) fL MCH (27-31) pg MCHC (31-36) g/dl RDW (10.5-15) % Plt Count (150-450) 10^3/ul MPV (7.4-10.4) um3 Neut % (Auto) (38-83) % Lymph % (Auto) (25-47) % [place] % (Auto) (1-9) % Eos % (Auto) (0-6) % Baso % (Auto) (0-2) % Absolute Neuts (auto) (1.5-7.7) 10^3/ul Absolute Lymphs (auto) (1.0-4.8) 10^3/ul Absolute Monos (auto) (0-0.8) 10^3/ul Absolute Eos (auto) (0-0.6) 10^3/ul Absolute Basos (auto) (0-0.2) 10^3/ul Absolute Nucleated RBC 10^3/ul Nucleated RBC % Sodium (133-145) mmol/L Potassium (3.5-5.0) mmol/L Chloride (101-111) mmol/L Carbon Dioxide (22-32) mmol/L Anion Gap (2-11) mmol/L BUN (6-24) mg/dL Creatinine (0.51-0.95) mg/dL Est GFR ( Amer) (>60) Est GFR (Non-Af Amer) (>60) BUN/Creatinine Ratio (8-20) Glucose (70-100) mg/dL Calcium (8.6-10.3) mg/dL Total Bilirubin (0.2-1.0) mg/dL AST (13-39) U/L ALT (7-52) U/L Alkaline Phosphatase (34-104) U/L Total Protein (6.4-8.9) g/dL Albumin (3.2-5.2) g/dL Globulin (2-4) g/dL Albumin/Globulin Ratio (1-3) TSH (0.34-5.60) mcIU/mL Urine Color Yellow Urine Appearance Clear Urine pH 6.0 (5-9) Ur Specific [place] 1.005 L (1.010-1.030) Urine Protein Negative (Negative) Urine Ketones Negative (Negative) Urine Blood 1+ H (Negative) Urine Nitrate Negative (Negative) Urine Bilirubin Negative (Negative) Urine Urobilinogen Negative (Negative) Ur Leukocyte Esterase 3+ H (Negative) Urine WBC (Auto) 3+(>20/hpf) H (Absent) Urine RBC (Auto) Trace(0-2/hpf) (Absent) Ur Squamous Epith Cells Present H (Absent) Urine Bacteria 1+ H (Absent) Urine Glucose Negative (Negative) Salicylates (<30) mg/dL Urine Opiates Screen None detected (None Detect) Acetaminophen mcg/mL Ur Barbiturates Screen None detected (None Detect) Ur Phencyclidine Scrn None detected (None Detect) Ur Amphetamines Screen None detected (None Detect) U Benzodiazepines Scrn None detected (None Detect) Urine Cocaine Screen None detected (None Detect) U Cannabinoids Screen None detected (None Detect) Serum Alcohol (<10) mg/dL Result Diagrams: 10/15/16 11:25 10/15/16 11:25 Lab Statement: Any lab studies that have been ordered have been reviewed, and results considered in the medical decision making process. - Radiology CXR Xray Interpretation: No Acute Changes - No active cardiopulmonary disease is identified. Radiology Interpretation Completed By: Radiologist - CT Brain CT CT Interpretation: No Acute Changes - CORTICAL ATROPHY WITH CHRONIC MICROVASCULAR ISCHEMIC CHANGES. NO ACUTE FINDINGS. CT Interpretation Completed By: Radiologist Altered Mental Statu Course/Dx - Course Assessment/Plan: Pt is a 76 y/o F who presents to ED c/o visual hallucinations. At approximately 0700 this morning she reports seeing "a little person in a jar. " Reports sx resolved shortly after a brief episode. Sx aggravated by nothing, alleviated by spontaneous resolution. Denies auditory hallucinations, acute COBOS, CP, SOB, diarrhea and constipation. Reports she has a chronic COBOS. No prior similar episodes. Medically cleared for MHE at 1243. Test result w/o any significant abnormality except glucose of 116. UA seems to be contaminated, therefore we will send urine for cultures. Urine toxicology is negative. Brain CT reveals CORTICAL ATROPHY WITH CHRONIC MICROVASCULAR ISCHEMIC CHANGES. NO ACUTE FINDINGS and CXR reveals No active cardiopulmonary disease is identified. The pt is A&Ox3, she does not have any complaints, therefore the pt is medically clear. The pt is awaiting MHE, seeing as the pt had 1 visual hallucination. She has no Hx of psychiatric disorders. Dr. Cabral evaluated the pt and he reports that the pt is clear from psychiatry, and that he believes the pt is having delirium or worsening dementia. At this point, I disclosed the case with Zabrinaendy from social work and she recommends for the pt to be D/C and follow up. The pt is still A&Ox3. I disclosed the findings and test results with the pt. The pt reports she has some urinary urgency and no dysuria. Therefore, Id rather treat the pt with Cipro and send for urine cultures and she will f/u with urine cultures with PCP. Before discharge, pts abdomen is soft and nontender with positive bowel sounds, therefore she will be D/C to home with follow up with PCP. She is hemodynamically stable and A&Ox3. - Diagnoses Differential Diagnosis/HQI/PQRI: CVA, Hypoglycemia, Intracranial Bleed, Medication Reaction, Metabolic Disorder, Seizure, TIA Discharge Diagnoses: Delirium, UTI (urinary tract infection) Discharge - Discharge Plan Condition: Stable Disposition: HOME Prescriptions: Ciprofloxacin TAB* [Cipro 250 MG Tab*] 250 mg PO BID #5 tab Patient Education Materials: Acute Delirium (ED), Urinary Tract Infection in Women (ED) Referrals: Camila Dean MD [Primary Care Provider] - 3 Days The documentation as recorded by the Chepe diaz Rebecca accurately reflects the service I personally performed and the decisions made by Yannick perry Walter, MD.
== END 2016-10-15 18:41 | disposition home or self-care (01) ==
LOC: ED 09:29
DX: R41.0 Disorientation, unspecified (principal); N39.0 Urinary tract infection, site not specified; R44.1 Visual hallucinations; Z87.891 Personal history of nicotine dependence
CPT/HCPCS: 36415; 70450; 71020; 80053; 80307; 80320; 80329; 81003; 81015; 84443; 85025; 87077; 87086; 87186; 99283; G0480

== ENCOUNTER 2016-12-05 23:13 | Observation (INO) | payer MEDICARE, BC ==
[2016-12-05] MEDS ORDERED: Aspirin Low Dose CHEW TAB* 81 MG PO ONE (23:38)
[2016-12-05 23:49] LABS: Hematocrit 37 % (35-47); Hemoglobin 12.1 g/dl (12.0-16.0); Mean Corpuscular HGB Conc 33 g/dl (31-36); Mean Corpuscular Hemoglobin 30 pg (27-31); Mean Corpuscular Volume 90 fL (80-97); Mean Platelet Volume 7 um3 (7.4-10.4); Red Blood Count 4.09 10^6/ul (4.0-5.4); Red Cell Distribution Width 13 % (10.5-15); White Blood Count 7.2 10^3/ul (3.5-10.8)
[2016-12-06 00:01] LABS: Albumin 4.1 g/dL (3.2-5.2); BUN/Creatinine Ratio 30.3 (8-20); Calcium 9.2 mg/dL (8.6-10.3); EGFR African American 79.3 (>60); EGFR Non-African American 61.7 (>60); Globulin 3.2 g/dL (2-4); Total Bilirubin 0.4 mg/dL (0.2-1.0); Total Protein 7.3 g/dL (6.4-8.9)
--- NOTE | 2016-12-06 03:55 | ED ---
Chepe Palafox Rebecca, scribed for Phu Loza on 12/05/16 at 2338 . HPI Chest Pain - HPI Summary HPI Summary: Pt is a 76 y/o F BIBA who presents to ED c/o CP. Pt is unsure of when pain began , though it is now resolved. When present, pain was characterized as pressure. Pt took NTG x1 at home and received 324 mg ASA by EMS while en route. Sx aggravated by nothing, alleviated by NTG and ASA. Additionally c/o edema. Denies N/V, dizziness and SOB. PMHx NC. Unsure of last stress test and NC, stating "it's been a while." - History of Current Complaint Time Seen by Provider: 12/05/16 23:34 Hx Obtained From: Patient Onset/Duration: Resolved Current Severity: None Pain Intensity: 0 Pain Scale Used: 0-10 Numeric Character: Pressure/Squeezing Aggravating Factor(s): Nothing Alleviating Factor(s): NTG 123, EMS Tx Associated Signs and Symptoms: Positive: Edema. Negative: Dizziness, Shortness of Breath, Nausea, Vomiting - Additional Pertinent History Primary Care Physician: ROSEMARY - Allergy/Home Medications Allergies/Adverse Reactions: Allergies Allergy/AdvReac Type Severity Reaction Status Date / Time LOYD Inhibitors Allergy Coughing Verified 10/15/16 09:40 Amlodipine [From [facility]] Allergy Rash Verified 10/15/16 09:40 PMH/Surg Hx/FS Hx/Imm Hx Endocrine/Hematology History: Reports: Hx Diabetes Denies: Hx Bone Marrow Disease, Hx Sickle Cell Disease, Hx Anemia Cardiovascular History: Reports: Hx Angina, Hx Coronary Artery Disease, Hx Hypercholesterolemia, Hx Hypertension, Hx Myocardial Infarction - 2 in 10 years , Other Cardiovascular Problems/Disorders - IDDM Denies: Hx Congestive Heart Failure, Hx Valvular Heart Disease Respiratory History: Denies: Hx Asthma, Hx Chronic Obstructive Pulmonary Disease (COPD) GI History: Reports: Hx Gall Bladder Disease - removed, Hx Gastroesophageal Reflux Disease Denies: Hx Ulcer History: Denies: Hx Renal Disease Musculoskeletal History: Reports: Hx Arthritis - knees, hands, Hx Osteoporosis Sensory History: Reports: Hx Contacts or Glasses Denies: Hx Hearing Aid Opthamlomology History: Reports: Hx Contacts or Glasses Neurological History: Reports: Hx Headaches, Hx Migraine Psychiatric History: Denies: Hx Anxiety, Hx Eating Disorder, Hx Depression, Hx of Violent Episodes Against Others - Cancer History Hx Chemotherapy: No - Surgical History Surgery Procedure, Year, and Place: left knee total replacement 2012 [facility],. cholecystectomy 5-6 years ago in [facility]. 2014 - left ankle orif. HEART CATH WITH 2 STENTS Hx Anesthesia Reactions: No Infectious Disease History: No Infectious Disease History: Denies: Traveled Outside the [place] in Last 30 Days - Family History Known Family History: Positive: Cardiac Disease - CAD (both parents) - Social History Alcohol Use: None Substance Use Type: Reports: None Hx Tobacco Use: Yes Smoking Status (MU): Former Smoker Type: Cigarettes Have You Smoked in the Last Year: No Review of Systems Positive: Chest Pain - resolved Negative: Shortness Of Breath Negative: Vomiting, Nausea Positive: Edema Neurological: Other - NEGATIVE: Dizziness All Other Systems Reviewed And Are Negative: Yes Physical Exam - Summary Physical Exam Summary: Appearance: Well appearing, no pain distress Skin: warm, dry, reflects adequate perfusion Head/face: normal Eyes: EOMI, DEZ ENT: normal Neck: supple, nontender Respiratory: CTA, breath sounds present Cardiovascular: RRR, pulses symmetrical Abdomen: nontender, soft Bowel: present Musculoskeletal: normal, strength/ROM intact Neuro: normal, sensory motor intact, A&Ox3 Triage Information Reviewed: Yes Vital Signs On Initial Exam: Initial Vitals Temp Pulse Resp BP Pulse Ox 98.5 F 83 17 145/75 96 12/05/16 23:15 12/05/16 23:15 12/05/16 23:15 12/05/16 23:15 12/05/16 23:15 Vital Signs Reviewed: Yes Diagnostics - Vital Signs Vital Signs Temp Pulse Resp BP Pulse Ox 12/05/16 23:15 98.5 F 83 17 145/75 96 - Laboratory Result Diagrams: 12/05/16 23:18 12/05/16 23:18 Lab Statement: Any lab studies that have been ordered have been reviewed, and results considered in the medical decision making process. - Radiology CXR Xray Interpretation: No Acute Changes Radiology Interpretation Completed By: ED Physician - EKG 2340 Cardiac Rate: NL - 82 bpm EKG Rhythm: Sinus Rhythm EKG Interpretation: No acute changes Chest Pain Course/Dx - Course Assessment/Plan: Pt is a 76 y/o F BIBA who presents to ED c/o CP. Pt is unsure of when pain began, though it is now resolved. When present, pain was characterized as pressure. Pt took NTG x1 at home and received 324 mg ASA by EMS while en route. Sx alleviated by NTG and ASA. Additionally c/o edema. Denies N/V, dizziness and SOB. PMHx NC. Unsure of last stress test and NC, stating "it's been a while." EKG is sinus rhythm with no acute changes. CXR reveals no acute findings, as read by ED physician. Troponin of 0.00. In the ED course, pt received ASA. Discussed care of pt with Dr. Mcgregor who accepts pt for admission. She will be admitted with Dx of CP r/o NC. She understands and agrees. Allergies noted. Elevated BP noted. Pt medications reviewed. - Diagnoses Provider Diagnoses: Chest pain, rule out acute myocardial infarction - Provider Notifications Discussed Care Of Patient With: Vinod Mcgregor Time Discussed With Above Provider: 01:20 Instructed by Provider To: Other - Accepts pt for admission. Discharge - Discharge Plan Condition: Stable Disposition: ADMITTED TO [facility] documentation as recorded by the Chepe diaz Rebecca accurately reflects the service I personally performed and the decisions made by , Phu Loza.
[2016-12-06 04:46] LABS: Urine Bilirubin Negative (Negative); Urine Glucose Negative (Negative); Urine Nitrite Negative (Negative)
--- NOTE | 2016-12-06 05:04 | HP ---
H&P (Free Text) History and Physical: PCP: Mellissa Dean MD Cardiology: Dr Pendleton Date/Time: 12/06/2016 0140 CC: chest pain HPI: Mrs Shea is a 76YO female who is a very difficult historian. She is unable to give meaningful answers to open ended questions and focused questions are often answered in extremely vague manner. When asked why she came in tonight she replies after considerable thought, "I had a session with my heart." She presents via EMS from home for onset around 2200 of moderate non-exertional non- radiating L chest pressure without SOB, nausea, sweats, palpitations, or light- headedness. The discomfort lasted for 1/2 hour before being entirely relieved by taking a SL nitro. She denies cough, congestion, F/C, rigors, abdominal pain , B/U/F of urine, and change in bowels. PMedHx CAD/[place]/stents DM2 diastolic dysfunction HTN HLD GERD migraine L foot drop Ambulatory Orders Nursing to reconcile. metFORMIN* [Glucophage 500 MG TAB *] 500 mg PO BID 11/10/13 Calcium 1,000 mg PO DAILY 11/21/13 Aspirin Low Dose CHEW TAB* [Aspirin Low Dose TAB*] 81 mg PO DAILY 11/06/14 Acetaminophen TAB* [Tylenol TAB*] 650 mg PO Q6H PRN 10/15/16 Carvedilol TAB* [Coreg TAB*] 25 mg PO BID WITH MEALS 10/15/16 Ciprofloxacin TAB* [Cipro 250 MG Tab*] 250 mg PO BID #5 tab 10/15/16 Clopidogrel TAB* [Plavix TAB*] 75 mg PO DAILY 10/15/16 Xunewkzsdyl-Tcogyybqogc-Kjw C- [Glucosamine Chondroitin] 1 tab PO BID 10/15/16 Multivitamins/Minerals TAB* [Theragran/minerals TAB*] 1 tab PO DAILY 10/15/16 Nitroglycerin TAB 0.4 MG* 0.4 mg SL Q5M PRN 10/15/16 Nortriptyline CAP* [Pamelor CAP*] 20 mg PO BEDTIME 10/15/16 Olmesartan Medoxomil-Hydrochlo [Olmesartan Medoxomil/Hydr 40-25 mg] 1 tab PO DAILY 10/15/16 Olopatadine 0.1% OPHTH (NF) [Patanol 0.1% OPHTH (NF)] 1 drop BOTH EYES DAILY Rosuvastatin (NF) [Crestor (NF)] 40 mg PO DAILY 10/15/16 Spironolactone TAB* [Aldactone TAB*] 25 mg PO DAILY 10/15/16 Allergies LOYD Inhibitors Allergy (Verified 10/15/16 09:40) Coughing Amlodipine [From Norvasc] Allergy (Verified 10/15/16 09:40) Rash PSurgHx cholecystectomy L TKA ORIF L ankle SocHx: former smoker w/ ~10 PYHX, denies alcohol and recreational drugs; lives alone; full code status FamHx: strongly positive for CAD ROS: as above, otherwise reviewed and all were negative vitals: Vital Signs Temp 36.4 C 12/06/16 02:45 Pulse 71 12/06/16 02:45 Resp 16 12/06/16 02:45 BP 156/71 12/06/16 02:45 Pulse Ox 97 12/06/16 02:45 Intake & Output 12/05/16 12/05/16 12/06/16 11:59 23:59 11:59 Weight 104.326 kg 125.055 kg Constitutional: NAD, normally developed, morbidly obese elderly white female HEENM: atraumatic; sclera/conjunctiva: non-icteric/clear; hearing: clinically mildly decreased; oropharynx: clear, mucosa tacky Neck: soft tissue: non-tender; thyroid: normal Pulmonary: clear to auscultation bilaterally, fair to good aeration, no accessory muscle use CV: RR/RR, normal S1S2, no carotid bruit, no jugular venous distention, 2+ B DP/ PT, no edema Abdominal: soft, non-distended, non-tender, no rebound/guarding/rigidity, normoactive bowel sounds, no hepatosplenomegaly or masses, no costovertebral angle tenderness Musculoskeletal: general: grossly intact, no palpable tenderness, Maribel's negative Integumental: normal appearance and texture of exposed skin Psychiatric orientation: AA&O to PP, loose on situation affect: flat mood: acquiescent eye contact: fair to poor content: vague, unreliable responses: mildly slowed insight: fair to poor Testing: Lab Results 10/07/17 10/07/17 10/07/17 Range/Units 23:18 23:18 23:18 WBC 7.2 (3.5-10.8) 10^3/ul RBC 4.09 (4.0-5.4) 10^6/ul Hgb 12.1 (12.0-16.0) g/dl Hct 37 (35-47) % MCV 90 (80-97) fL MCH 30 (27-31) pg MCHC 33 (31-36) g/dl RDW 13 (10.5-15) % Plt Count 339 (150-450) 10^3/ul MPV 7 L (7.4-10.4) um3 Neut % (Auto) 63.4 (38-83) % Lymph % (Auto) 22.2 L (25-47) % [place] % (Auto) 10.7 H (1-9) % Eos % (Auto) 2.8 (0-6) % Baso % (Auto) 0.9 (0-2) % Absolute Neuts (auto) 4.6 (1.5-7.7) 10^3/ul Absolute Lymphs (auto) 1.6 (1.0-4.8) 10^3/ul Absolute Monos (auto) 0.8 (0-0.8) 10^3/ul Absolute Eos (auto) 0.2 (0-0.6) 10^3/ul Absolute Basos (auto) 0.1 (0-0.2) 10^3/ul Absolute Nucleated RBC 0 10^3/ul Nucleated RBC % 0 INR (Anticoag Therapy) 0.90 (0.89-1.11) APTT 30.7 (26.0-36.3) seconds Sodium (133-145) mmol/L Potassium (3.5-5.0) mmol/L Chloride (101-111) mmol/L Carbon Dioxide (22-32) mmol/L Anion Gap (2-11) mmol/L BUN (6-24) mg/dL Creatinine (0.51-0.95) mg/dL Est GFR ( Amer) (>60) Est GFR (Non-Af Amer) (>60) BUN/Creatinine Ratio (8-20) Glucose (70-100) mg/dL Calcium (8.6-10.3) mg/dL Magnesium (1.9-2.7) mg/dL Total Bilirubin (0.2-1.0) mg/dL AST (13-39) U/L ALT (7-52) U/L Alkaline Phosphatase (34-104) U/L Troponin I (<0.04) ng/mL B-Natriuretic Peptide 32 ( - 100) pg/mL Total Protein (6.4-8.9) g/dL Albumin (3.2-5.2) g/dL Globulin (2-4) g/dL Albumin/Globulin Ratio (1-3) Urine Color Urine Appearance Urine pH (5-9) Ur Specific [place] (1.010-1.030) Urine Protein (Negative) Urine Ketones (Negative) Urine Blood (Negative) Urine Nitrate (Negative) Urine Bilirubin (Negative) Urine Urobilinogen (Negative) Ur Leukocyte Esterase (Negative) Urine Glucose (Negative) 12/05/16 12/06/16 Range/Units 23:18 04:25 WBC (3.5-10.8) 10^3/ul RBC (4.0-5.4) 10^6/ul Hgb (12.0-16.0) g/dl Hct (35-47) % MCV (80-97) fL MCH (27-31) pg MCHC (31-36) g/dl RDW (10.5-15) % Plt Count (150-450) 10^3/ul MPV (7.4-10.4) um3 Neut % (Auto) (38-83) % Lymph % (Auto) (25-47) % [place] % (Auto) (1-9) % Eos % (Auto) (0-6) % Baso % (Auto) (0-2) % Absolute Neuts (auto) (1.5-7.7) 10^3/ul Absolute Lymphs (auto) (1.0-4.8) 10^3/ul Absolute Monos (auto) (0-0.8) 10^3/ul Absolute Eos (auto) (0-0.6) 10^3/ul Absolute Basos (auto) (0-0.2) 10^3/ul Absolute Nucleated RBC 10^3/ul Nucleated RBC % INR (Anticoag Therapy) (0.89-1.11) APTT (26.0-36.3) seconds Sodium 138 (133-145) mmol/L Potassium 4.0 (3.5-5.0) mmol/L Chloride 103 (101-111) mmol/L Carbon Dioxide 29 (22-32) mmol/L Anion Gap 6 (2-11) mmol/L BUN 27 H (6-24) mg/dL Creatinine 0.89 (0.51-0.95) mg/dL Est GFR ( Amer) 79.3 (>60) Est GFR (Non-Af Amer) 61.7 (>60) BUN/Creatinine Ratio 30.3 H (8-20) Glucose 130 H (70-100) mg/dL Calcium 9.2 (8.6-10.3) mg/dL Magnesium 2.0 (1.9-2.7) mg/dL Total Bilirubin 0.40 (0.2-1.0) mg/dL AST 28 (13-39) U/L ALT 25 (7-52) U/L Alkaline Phosphatase 107 H (34-104) U/L Troponin I 0.00 (<0.04) ng/mL B-Natriuretic Peptide ( - 100) pg/mL Total Protein 7.3 (6.4-8.9) g/dL Albumin 4.1 (3.2-5.2) g/dL Globulin 3.2 (2-4) g/dL Albumin/Globulin Ratio 1.3 (1-3) Urine Color Yellow Urine Appearance Clear Urine pH 6.0 (5-9) Ur Specific [place] 1.013 (1.010-1.030) Urine Protein Negative (Negative) Urine Ketones Negative (Negative) Urine Blood Negative (Negative) Urine Nitrate Negative (Negative) Urine Bilirubin Negative (Negative) Urine Urobilinogen Negative (Negative) Ur Leukocyte Esterase Negative (Negative) Urine Glucose Negative (Negative) ECG, personally reviewed: NSR rate 82, no ischemia, Q-waves II/III/AVF CXR, personally reviewed: no acute process ECHO 04/2016: Conclusions: The study is technically limited due to patient body habitus. Mild concentric left ventricular hypertrophy is observed. SA views are off axis, suggestive of a focal area of hypokinesis at the base of the posterior wall. This is not seen in 2 chamber views. There is normal left ventricular systolic function. The estimated ejection fraction is 55-60%. Abnormal left ventricular diastolic filling is observed, consistent with impaired relaxation. The right ventricular chamber size and systolic function are within the normal limits. Ther is mild mitral regurgitation. There is mild tricuspid regurgitation. There is evidence of mild pulmonary hypertension: 40mmHg. Compared with prior echo of 11/13/2014, posterior hypokinesis seen, EF is stable, the degree of MR has improved from moderate, PA pressure stable. Impression: 76F HX CAD/[place]/stents presenting with chest pressure for r/o ACS DIAGNOSIS & PLAN Primary chest pain r/o ACS : HX CAD/[place]/stents : aspirin : continue clopidogrel : trend troponin : telemetry : supplemental oxygen : supportive care Secondary DM2 : hold metformin : consistent carb diet : correctional insulin : A1c 6.0% 09/23/2016 diastolic dysfunction : cautious use of IVFs : strict I&Os : daily weights HTN : review meds once reconciled HLD : review meds once reconciled GERD : PO omeprazole Admission Rational: CDU observation for r/o ACS DVTp: heparin SQ Code Status: full HCP: unable to designate
[2016-12-06] MEDS ORDERED: Ondansetron INJ* 2 MG/ML VIAL IV PRN (05:31)
[2016-12-06] MEDS ORDERED: Albuterol 2.5 MG/3 ML NEB.SOL* (0.083%) INH PRN (05:31)
[2016-12-06] MEDS ORDERED: Melatonin (NF) 3 MG TAB PO PRN (05:31)
[2016-12-06] MEDS ORDERED: NS 0.9% 1000 ML* 1,000 ML IV SCH (05:45)
[2016-12-06] MEDS: CMCS Pantoprazole TAB (NF) 40 MG TAB PO SCH (06:16)
[2016-12-06 06:37] LABS: Hematocrit 35 % (35-47); Hemoglobin 11.5 g/dl (12.0-16.0); Mean Corpuscular HGB Conc 33 g/dl (31-36); Mean Corpuscular Hemoglobin 30 pg (27-31); Mean Corpuscular Volume 89 fL (80-97); Mean Platelet Volume 7 um3 (7.4-10.4); Red Cell Distribution Width 13 % (10.5-15); White Blood Count 7.2 10^3/ul (3.5-10.8)
[2016-12-06 06:49] LABS: EGFR African American 99.7 (>60); EGFR Non-African American 77.5 (>60)
--- NOTE | 2016-12-06 07:46 | RAD ---
HISTORY: Chest pain COMPARISONS: October 15, 2016 VIEWS: 1: frontal portable view of the chest at 12:00 AM FINDINGS: LINES AND TUBES: None. CARDIOMEDIASTINAL SILHOUETTE: The aorta is tortuous. The cardiomediastinal silhouette is otherwise normal for portable technique. PLEURA: The costophrenic angles are sharp. No pleural abnormalities are noted. LUNG PARENCHYMA: There is hyperinflation. ABDOMEN: The upper abdomen is clear. There is no subphrenic gas. BONES AND SOFT TISSUES: No bone or soft tissue abnormalities are noted. IMPRESSION: HYPERINFLATION. NO ACTIVE CARDIOPULMONARY DISEASE.
[2016-12-06] MEDS: Insulin LISPRO* 1 UNITS UNIT SUBCUT SCH ×4 (07:59→20:58)
[2016-12-06] MEDS: Docusate CAP* 100 MG PO SCH ×2 (08:15→21:32)
[2016-12-06] MEDS: Aspirin EC Low Dose* 81 MG TAB.EC PO SCH (08:15)
[2016-12-06] MEDS: Clopidogrel TAB* 75 MG PO SCH (08:15)
[2016-12-06] MEDS: Heparin VIAL(*) 5000 UNITS/ML VIAL (FIVE THOUSAND) SUBCUT SCH ×2 (08:16→16:25)
[2016-12-06] MEDS: Acetaminophen TAB* 325 MG PO PRN ×2 (09:36→16:25)
[2016-12-06] MEDS ORDERED: Iodixanol* (CONTRAST) 320 MG/ML 100 ML SDV IV SCH (09:56)
--- NOTE | 2016-12-06 10:50 | RAD ---
HISTORY: Chest pain, shortness of breath COMPARISONS: November 12, 2014 TECHNIQUE: Multiple contiguous axial CT scans of the chest were obtained after the administration of nonionic intravenous contrast, timed to the pulmonary arterial phase of contrast enhancement.. Coronal and sagittal multiplanar reformations are also submitted for review. FINDINGS: NECK AND THYROID: The lower neck and thyroid are unremarkable. CHEST WALL: There is no lower cervical, axillary, or supraclavicular lymphadenopathy by size criteria. HEART AND PERICARDIUM: The heart is unremarkable. AORTA AND PULMONARY VASCULATURE: There is no pulmonary arterial filling defect to suggest pulmonary embolism. There is no linear filling defect within the aorta to suggest aortic dissection. There is atherosclerosis of the thoracic aorta MEDIASTINUM: There is no mediastinal lymphadenopathy by size criteria. GEOFFREY: There is no hilar lymphadenopathy by size criteria. AIRWAY AND ESOPHAGUS: The airway is unremarkable, without endobronchial filling defect. The esophagus is grossly normal. LUNG PARENCHYMA: There is a stable 0.3 cm nodule of the right middle lobe. The stability is consistent with benign nodule. PLEURA: No pleural abnormalities are noted. UPPER ABDOMEN: There is fatty infiltration of the liver. A simple left renal cyst is noted BONES AND SOFT TISSUES: Degenerative changes are noted of the spine OTHER: None. IMPRESSION: NO PULMONARY ARTERIAL FILLING DEFECTS TO SUGGEST PULMONARY EMBOLISM
[2016-12-06] MEDS: CMC: Rosuvastatin (NF) 20 MG TAB PO SCH (13:17)
--- NOTE | 2016-12-06 16:19 | PN ---
Hospitalist Progress Note HOSPITALIST ADDENDUM Mrs. Shea is a 76yo F with PMH of CAD, DM, diastolic CHF, HTN, HLD, GERD, who presented to ED with c/o CP. Patient is a very poor historian and unable to give more characteristics about her pain. She had a stress test in August 2016 with a small area of ischemia in the anteroseptal wall, and echo showed posterior wall hypokinesis and normal EF, unchanged from 2015. Will monitor on Telemetry, check serial troponins, check CTA chest to r/o PE. If w/u negative, will discharge home with close f/u with Dr. Guillaume.
[2016-12-06] MEDS ORDERED: Nortriptyline CAP* 10 MG PO SCH (21:00)
[2016-12-07] MEDS: Heparin VIAL(*) 5000 UNITS/ML VIAL (FIVE THOUSAND) SUBCUT SCH ×2 (00:34→08:36)
[2016-12-07] MEDS: CMCS Pantoprazole TAB (NF) 40 MG TAB PO SCH (04:42)
[2016-12-07] MEDS: Acetaminophen TAB* 325 MG PO PRN (04:42)
[2016-12-07] MEDS: Insulin LISPRO* 1 UNITS UNIT SUBCUT SCH ×2 (08:19→12:20)
[2016-12-07] MEDS: Docusate CAP* 100 MG PO SCH (08:35)
[2016-12-07] MEDS: Aspirin EC Low Dose* 81 MG TAB.EC PO SCH (08:36)
[2016-12-07] MEDS: Clopidogrel TAB* 75 MG PO SCH (08:36)
[2016-12-07] MEDS: CMC: Rosuvastatin (NF) 20 MG TAB PO SCH (08:36)
[2016-12-07 09:41] VITALS: BP 151/87
--- NOTE | 2016-12-08 10:29 | DS ---
CC: Dr. Dean; Dr. Guillaume * DISCHARGE SUMMARY: DATE OF ADMISSION: 12/06/16. DATE OF DISCHARGE: 12/07/16. PRIMARY CARE PHYSICIAN: Dr. Dean. COPRA PROCESSOR: Dr. Guillaume. DISCHARGE DIAGNOSES: Chest pain of unclear etiology, acute coronary syndrome ruled out. SECONDARY DIAGNOSES: 1. Coronary artery disease. 2. Diastolic congestive heart failure. 3. Type 2 diabetes. 4. Hypertension. 5. Hyperlipidemia. 6. Gastroesophageal reflux disease. 7. Migraine. 8. Left foot drop. MEDICATION LIST: 1. Acetaminophen 650 mg p.o. q. 6 hours p.r.n. pain or fever. 2. Aspirin 81 mg p.o. daily. 3. Calcium 1000 mg p.o. daily. 4. Carvedilol 25 mg p.o. b.i.d. with meals. 5. Clopidogrel 75 mg p.o. daily. 6. Glucosamine chondroitin vitamin C 1 tablet p.o. b.i.d. 7. Metformin 500 mg p.o. b.i.d. to be resumed on December 08. 8. Multivitamin 1 tablet p.o. daily. 9. Nitroglycerin 0.4 mg sublingual q. 5 minutes p.r.n. chest pain. 10. Nortriptyline 200 mg p.o. at bedtime. 11. Olmesartan/hydrochlorothiazide 40/25 mg 1 tablet p.o. daily. 12. Olopatadine 0.1% one drop to both eyes daily. 13. Rosuvastatin 40 mg p.o. daily. 14. Spironolactone 25 mg p.o. daily. HOSPITAL COURSE: Ms. Shea is a 76-year-old lady with a past medical history as stated above that presented to the emergency room with complaints of left sided chest pressure. The patient is a very poor historian and we were unable to obtain more characteristics due to her vague description of her symptoms. For more details about presentation, I refer you to her history and physical. The patient was admitted to the telemetry floor where she had no significant arrhythmias. Serial troponins were negative. As the patient was a poor historian, we were unable to obtain more defined symptoms. She underwent a CT of the chest to rule out PE and this test was negative. The patient had a similar admission in August 2016, and at that time she had a stress test that showed findings suggestive of a small area of ischemia in the anteroseptal wall and an echocardiogram that showed ejection fraction of 55% to 60%, a focal area of hypokinesis at the base of the posterior wall, and those were unchanged from her prior echo from October 2014. At that time, the discharging physician discussed the stress test result with Dr. Enamorado and at that point his recommendation was for intervention only if the stress test showed moderate or large area of ischemia. At this point, the etiology of her chest pain is unclear. She is being discharged home, but I believe she should have close followup with Dr. Guillaume and with her primary care provider. PHYSICAL EXAMINATION: Vital Signs: Temperature 98.5, heart rate is 80, respiratory rate is 20, oxygen saturation is 97% on room air, blood pressure is 151/87. General: The patient is a pleasant elderly lady, sitting up in a chair , in no acute distress. CVS: Normal S1, S2. Regular rate and rhythm. Chest: Breath sounds present bilaterally with no added sounds. Neuro: She is alert and oriented x3. Able to move all 4 extremities. DIET: Consistent carb, heart healthy diet. ACTIVITY: As tolerated. DISPOSITION: To home. STATUS WHILE IN THE HOSPITAL: Observation. Please keep in mind that this is a summarized version of this patient's hospital stay. If you need more information, please feel free to call me at [phone] or please obtain the full medical records. TIME SPENT: Approximately 45 minutes was spent to complete this discharge. [id number]/CPS #: [id number] MTDD
== END 2016-12-07 12:38 | disposition home or self-care (01) ==
LOC: ED 23:13 → MEDTELE 12-06 01:38
PROVIDERS: ADMIT Hospitalist; ATTEND Internal Medicine
DX: R07.9 Chest pain, unspecified (principal); I25.10 Atherosclerotic heart disease of native coronary artery without angina pectoris; I11.0 Hypertensive heart disease with heart failure; I50.30 Unspecified diastolic (congestive) heart failure; E11.9 Type 2 diabetes mellitus without complications; E78.5 Hyperlipidemia, unspecified; K21.9 Gastro-esophageal reflux disease without esophagitis; G43.909 Migraine, unspecified, not intractable, without status migrainosus; M21.372 Foot drop, left foot; I25.2 Old myocardial infarction; Z79.82 Long term (current) use of aspirin; Z79.899 Other long term (current) drug therapy; Z88.8 Allergy status to other drugs, medicaments and biological substances; Z87.891 Personal history of nicotine dependence
CPT/HCPCS: 36415; 71010; 71275; 80053; 81003; 82565; 83735; 83880; 84484; 84520; 85025; 85610; 85730; 93005; 94760; 96360; 96372; 99284; A9270-GY; G0378; J1644; Q9967

== ENCOUNTER 2017-02-17 15:40 | Emergency (ER) | payer MEDICARE, BC ==
--- NOTE | 2017-02-17 16:29 | RAD ---
INDICATION: Left ankle pain and swelling COMPARISON: CT August 18, 2013 TECHNIQUE: AP, lateral, and oblique views were obtained. FINDINGS: There is a remote tibial fracture with radiographic findings consistent with removal of hardware. 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 There is a pes planus deformity with degenerative change of the midfoot. There is diffuse edema. IMPRESSION: POSTSURGICAL AND DEGENERATIVE CHANGES DESCRIBED WITH SOFT TISSUE EDEMA. NO ACUTE FINDINGS
--- NOTE | 2017-02-17 17:24 | ED ---
Lower Extremity - HPI Summary HPI Summary: 77F presents with left ankle injury three days ago. She twisted her ankle outside. She denies any numbness or tingling. she has been able to ambulate. She has been using a walker that she has at home to get around. She admits to increase swelling in her ankle. She had previous surgery like 5 years ago here for ankle injury. She denies any knee pain. She has not taken anything for her pain. The pain is worst with ambulation. - History of Current Complaint Chief Complaint: EDExtremityLower Stated Complaint: ANKLE INJURY Time Seen by Provider: 02/17/17 16:00 Pain Intensity: 0 - Allergies/Home Medications Allergies/Adverse Reactions: Allergies Allergy/AdvReac Type Severity Reaction Status Date / Time LOYD Inhibitors Allergy Coughing Verified 10/15/16 09:40 Amlodipine [From [facility]] Allergy Rash Verified 10/15/16 09:40 PMH/Surg Hx/FS Hx/Imm Hx Endocrine/Hematology History: Reports: Hx Diabetes Denies: Hx Bone Marrow Disease, Hx Sickle Cell Disease, Hx Anemia Cardiovascular History: Reports: Hx Angina, Hx Coronary Artery Disease, Hx Hypercholesterolemia, Hx Hypertension, Hx Myocardial Infarction - 2 in 10 years , Other Cardiovascular Problems/Disorders - IDDM Denies: Hx Congestive Heart Failure, Hx Valvular Heart Disease Respiratory History: Denies: Hx Asthma, Hx Chronic Obstructive Pulmonary Disease (COPD) GI History: Reports: Hx Gall Bladder Disease - removed, Hx Gastroesophageal Reflux Disease Denies: Hx Ulcer History: Denies: Hx Renal Disease Musculoskeletal History: Reports: Hx Arthritis - knees, hands, Hx Osteoporosis Sensory History: Reports: Hx Contacts or Glasses Denies: Hx Hearing Aid Opthamlomology History: Reports: Hx Contacts or Glasses Neurological History: Reports: Hx Headaches, Hx Migraine Psychiatric History: Denies: Hx Anxiety, Hx Eating Disorder, Hx Depression, Hx of Violent Episodes Against Others - Cancer History Hx Chemotherapy: No - Surgical History Surgery Procedure, Year, and Place: left knee total replacement 2012 [facility],. cholecystectomy 5-6 years ago in [place]. 2014 - left ankle orif. HEART CATH WITH 2 STENTS Hx Anesthesia Reactions: No - Immunization History Date of Tetanus Vaccine: unknown Date of Influenza Vaccine: UTD Infectious Disease History: No Infectious Disease History: Denies: Traveled Outside the [place] in Last 30 Days - Family History Known Family History: Positive: Cardiac Disease - CAD (both parents) - Social History Alcohol Use: None Substance Use Type: Reports: None Hx Tobacco Use: Yes Smoking Status (MU): Former Smoker Type: Cigarettes Have You Smoked in the Last Year: No Review of Systems Negative: Fever Negative: Chest Pain Negative: Shortness Of Breath Positive: Myalgia - left ankle pain All Other Systems Reviewed And Are Negative: Yes Physical Exam Triage Information Reviewed: Yes Vital Signs On Initial Exam: Initial Vitals Temp Pulse Resp BP Pulse Ox 99 F 86 16 148/58 98 02/17/17 15:55 02/17/17 15:55 02/17/17 15:55 02/17/17 15:55 02/17/17 15:55 Vital Signs Reviewed: Yes Appearance: Positive: Well-Appearing Skin: Positive: Warm, Dry Head/Face: Positive: Normal Head/Face Inspection Eyes: Positive: Normal, Conjunctiva Clear Respiratory/Lung Sounds: Positive: Clear to Auscultation, Breath Sounds Present Cardiovascular: Positive: Normal, RRR Musculoskeletal: Positive: Strength/ROM Intact - left ankle, Edema Left - ankle mild, Other - sensation grossly intact, good pulses, tenderness medial aspect ankle Neurological: Positive: Sensory/Motor Intact Psychiatric: Positive: Normal - Gilbert Coma Scale Coma Scale Total: 15 Diagnostics - Vital Signs Vital Signs Temp Pulse Resp BP Pulse Ox 02/17/17 15:55 99 F 86 16 148/58 98 - Laboratory Lab Statement: Any lab studies that have been ordered have been reviewed, and results considered in the medical decision making process. - Radiology ankle Xray Interpretation: No Acute Changes - IMPRESSION: POSTSURGICAL AND DEGENERATIVE CHANGES DESCRIBED WITH SOFT TISSUE EDEMA. NO ACUTE FINDINGS Radiology Interpretation Completed By: Radiologist Lower Extremity Course/Dx - Course Course Of Treatment: 77F presents with left ankle injury three days ago. She twisted her ankle outside. She denies any numbness or tingling. she has been able to ambulate. She has been using a walker that she has at home to get around. She admits to increase swelling in her ankle. She had previous surgery like 5 years ago here for ankle injury. She denies any knee pain. She has not taken anything for her pain. The pain is worst with ambulation. on exam mild edema, full ROM, neurovascular intact. xray no fracture. will discharge with RICE instruction. patient understand and agrees with plan. - Diagnoses Differential Diagnosis/HQI/PQRI: Positive: Fracture (Closed), Sprain, Strain Provider Diagnoses: Left ankle sprain Discharge - Discharge Plan Condition: Good Disposition: HOME Patient Education Materials: Ankle Sprain (ED) Referrals: Camila Dean MD [Primary Care Provider] - Additional Instructions: Stay off ankle as much as possible Ice, elevate, keep in LOYD Tyenlol every 6 hours for pain Follow up with primary if no improvement Return to ED if develop or any new or worsening symptoms
[2017-02-17 17:59] VITALS: BP 131/78
== END 2017-02-17 17:58 | disposition home or self-care (01) ==
LOC: ED 15:40
DX: S93.402A Sprain of unspecified ligament of left ankle, initial encounter (principal); X50.9XXA Other and unspecified overexertion or strenuous movements or postures, initial encounter; Y93.9 Activity, unspecified; Y92.9 Unspecified place or not applicable
CPT/HCPCS: 99282